=== PATIENT | male | born 1945 | race Caucasian/White ===

== ENCOUNTER 2022-05-23 17:26 | Observation (INO) | payer MEDICARE ==
[~2022-05-23] VITALS: Ht 167 cm; Wt 54.2 kg
[2022-05-23] VITALS (7 sets, daily range): BP systolic 131–170; BP diastolic 61–131
[2022-05-23 17:45] LABS: BASOPHILS # (AUTO) 0.1 10^3/uL (0.0-0.1); BASOPHILS % (AUTO) 1 % (0-10); EOSINOPHILS # (AUTO) 0.2 10^3/uL (0.0-0.3); EOSINOPHILS % (AUTO) 2 % (0-10); HEMATOCRIT 39 % (40-54); HEMOGLOBIN 13.2 g/dL (13.3-17.7); LYMPHOCYTES # (AUTO) 2.8 10^3/uL (1.0-4.0); LYMPHOCYTES % (AUTO) 31 % (12-44); MEAN CORPUSCULAR HEMOGLOBIN 32 pg (25-34); MEAN CORPUSCULAR HGB CONC 34 g/dL (32-36); MEAN CORPUSCULAR VOLUME 95 fL (80-99); MEAN PLATELET VOLUME 9.6 fL (9.0-12.2); MONOCYTES # (AUTO) 0.6 10^3/uL (0.0-1.0); MONOCYTES % (AUTO) 7 % (0-12); NEUTROPHILS # (AUTO) 5.3 10^3/uL (1.8-7.8); NEUTROPHILS % (AUTO) 59 % (42-75); PLATELET COUNT 141 10^3/uL (130-400)
[2022-05-23 17:54] LABS: ALBUMIN 3.8 GM/DL (3.2-4.5)
[2022-05-23 17:55] LABS: CHLORIDE 107 MMOL/L (98-107); POTASSIUM 3.5 MMOL/L (3.6-5.0); SODIUM 144 MMOL/L (135-145)
[2022-05-23 17:56] LABS: CALCIUM 9.2 MG/DL (8.5-10.1)
[2022-05-23 17:57] LABS: GLUCOSE 86 MG/DL (70-105); TOTAL PROTEIN 6.8 GM/DL (6.4-8.2)
[2022-05-23 17:58] LABS: CARBON DIOXIDE 24 MMOL/L (21-32)
[2022-05-23 17:59] LABS: BILIRUBIN,TOTAL 0.9 MG/DL (0.1-1.0)
[2022-05-23 18:00] LABS: ALKALINE PHOSPHATASE 70 U/L (40-136)
[2022-05-23 18:01] LABS: GFR ESTIMATED 90
[2022-05-23 18:02] LABS: BUN/CREATININE RATIO 24
[2022-05-23 18:04] LABS: ALANINE AMINOTRANSFERASE 20 U/L (0-55)
[2022-05-23 18:05] LABS: FIBRIN DEGRADATION PRODUCTS 5.73 UG/ML (0.00-0.49); PROTHROMBIN TIME PATIENT 13.6 SEC (12.2-14.7)
--- NOTE | 2022-05-23 18:14 | Diagnostic Imaging Report ---
INDICATION: Stroke, altered mental status and facial droop. TECHNIQUE: Frontal chest obtained at 06:07 p.m. COMPARISON: There is no prior study for comparison. FINDINGS: There is post-sternotomy change. The heart is borderline prominent. There is no focal infiltrate or pneumothorax or pleural fluid. There are advanced degenerative changes in both shoulders. IMPRESSION: Chronic findings as above with no acute process in the chest. Dictated by: Dictated on workstation # [id number]
--- NOTE | 2022-05-23 18:16 | Diagnostic Imaging Report ---
PROCEDURE: CT head wo r/o stroke. TECHNIQUE: Multiple contiguous axial images were obtained through the brain without the use of intravenous contrast. Auto Exposure Controls were utilized during the CT exam to meet ALARA standards for radiation dose reduction. INDICATION: Confusion, left facial drooping. No prior studies are available for comparison. FINDINGS: Ventricles and sulci are appropriate for the patient's age. No sulcal effacement is identified. There is no midline shift. No acute intra-axial or extra-axial hemorrhage is detected. Cisterns are patent. Visualized paranasal sinuses are clear. IMPRESSION: No acute intracranial process is detected. Dictated by: Dictated on workstation # [id number]
[2022-05-23 18:45] LABS: CLARITY,URINE CLEAR; COLOR,URINE YELLOW; GLUCOSE, URINE (UA) NEGATIVE (NEGATIVE); PROTEIN,URINE TRACE (NEGATIVE)
[2022-05-23 18:46] LABS: BACTERIA,URINE NEGATIVE /HPF; BILIRUBIN,URINE NEGATIVE (NEGATIVE); KETONES,URINE NEGATIVE (NEGATIVE); LEUKOCYTE ESTERASE ,URINE NEGATIVE (NEGATIVE); NITRITE,URINE NEGATIVE (NEGATIVE); WBC,URINE RARE /HPF
--- NOTE | 2022-05-23 20:38 | ED Neurological Problem ---
General Chief Complaint: Neuro-Stroke Like Symptoms Stated Complaint: STROKE SYMPTOMS Nursing Triage Note: PT ARRIVED PER EMS, PT IS PLEASANTLY CONFUSED. PT NIECE STATES APPROX 1 HR AGO PT HAS L FACIAL DROOPING, DROOLING FROM L SIDE MOUTH WHEN DRINKS. L UPPER EXT WEAKNESS. THIS HAS RESOLVED FOR EMS. UPON ARRIVAL PT HAS NO FACIAL DROOPING AND ONLY SL L UPPER EXT WEAKNESS. PT HAS L SIDE FACIAL DROOP, AND SL L UPPER EXT WEAKNESS. PT HAS HX OF DEMENTIA AND IS SOMETIMES COMBATIVE W FAMILY WHEN TAKING MED. PT DOES NOT HAVE LOCAL DR AT THIS X. PT DOES HAVE IV #22 JELCO BY EMS. Source: patient Exam Limitations: no limitations History of Present Illness Date Seen by Provider: May 23, 2022 Time Seen by Provider: 17:26 Initial Comments This is a 77-year-old male who presented to the ER via [facility] for concerns of left-sided facial drooping and left arm weakness. His niece who is his caregiver and DPOA states that he has a history of dementia, hyperlipidemia, acid reflux, and potentially several other diagnoses however he does not currently have a doctor nor does he have any medical records. States he recently moved to the area with her from [place]. His spouse in December of this year and he has been "lost" since her passing. She is unaware of most of his medical history, does note that he has thoracic scar from "some heart surgery" but she is unsure of what. When she checked his local pharmacy, they only reported medications for GERD and HLD, she is unsure if he should be taking any other medications. Recently at night he will wander around house, have increased confusion, and become very agitated. She would like him evaluated for his stroke like symptoms today and possible assistance with his dementia and behavioral disturbances. He is a current PPD smoker. Allergies and Home Medications Allergies Coded Allergies: No Known Drug Allergies (Unverified , 05/23/22) Patient Home Medication List Home Medication List Reviewed: Yes Aspirin (Aspirin EC) 81 Mg Tablet., 81 MG PO DAILY, (Reported) Entered as Reported by: JUSTIN LAROSE on 05/24/22 1252 Last Action: Reviewed Atorvastatin Calcium (Atorvastatin Calcium) 40 Mg Tablet, 40 MG PO HS, (Reported) Entered as Reported by: JUSTIN LAROSE on 05/24/22 1252 Last Action: Reviewed Losartan Potassium (Losartan Potassium) 50 Mg Tablet, 50 MG PO DAILY Prescribed by: RUDDY MARTIN on 05/29/22 1215 Omeprazole (Omeprazole) 20 Mg Capsule., 20 MG PO HS, (Reported) Entered as Reported by: JUSTIN LAROSE on 05/24/22 1252 Last Action: Reviewed Review of Systems Review of Systems Constitutional: see HPI Past Iayxibh-Joevhs-Yvkkwh Hx Patient Social History Tobacco Use?: Yes Tobacco type used: Cigarettes Smoking Status: Current Everyday Smoker Substance use?: No Alcohol Use?: No Pt feels they are or have been: No Immunizations Up To Date First/Initial COVID19 Vaccinat: 2020 COVID19 Vaccine Jig [employer] Operator: UNKNOWN Past Medical History Surgery/Hospitalization HX: L TOTAL HIP, HEART SURG UNSURE WHAT KIND Physical Exam Vital Signs Vital Signs - First Documented 05/23/22 17:26 Temp 36.8 Pulse 65 Resp 22 B/P (MAP) 170/84 (112) Pulse Ox 97 Capillary Refill : Less Than 3 Seconds Height, Weight, BMI Height: '" Weight: lbs. oz. kg; 21.00 BMI Method: General Appearance: WD/WN, no apparent distress HEENT: PERRL/EOMI, normal ENT inspection, TMs normal Neck: full range of motion, supple, normal inspection Respiratory: lungs clear, normal breath sounds, no respiratory distress, no accessory muscle use Cardiovascular: regular rate, rhythm, no edema, bradycardia Peripheral Pulses: 2+ Radial Pulses (R), 2+ Radial Pulses (L) Gastrointestinal: normal bowel sounds, non tender, soft Back: normal inspection, no vertebral tenderness Extremities: normal range of motion, normal inspection Neurologic/Psychiatric: no motor/sensory deficits, alert, normal mood/affect, oriented x 3 Crainal Nerves: normal hearing, normal speech, PERRL; No facial asymmetry, No facial droop, No facial paresthesias, No facial weakness Coordination/Gait: normal finger to nose Motor/Sensory: no motor deficit, no sensory deficit, no pronator drift Skin: normal color, warm/dry Stroke Onset of Symptoms Date of Onset of Symptoms: May 23, 2022 Time of Symptom Onset: 16:30 NIH Stroke Scale Assessment Select: Initial Level of Consciousness: 0=Alert (0), Level of Consciousness-Questions: 1=Answers one question (1), LOC Commands: 0=Performs both tasks (0), Visual Riley: 0=No visual loss (0), Facial Movement (Facial Paresis): 1=Minor paralysis (1), Motor Function-Arms Right: 0=No drift (0), Motor Function-Arms Left: 0=No drift (0), Motor Function-Legs Right: 0=No drift (0), Motor Function-Legs Left: 0=No drift (0), Limb Ataxia: 0=Absent (0), Sensory: 0=Normal:no loss (0), Best Language: 0=No aphasia (0), Dysarthria: 0=Normal (0), Extinction & Inattention: 0=No abnormality (0), Total: 2 Progress/Results/Core Measures Results/Orders Lab Results Laboratory Tests Test 05/23/22 17:30 05/23/22 18:22 Range/Units White Blood Count 9.0 4.3-11.0 10^3/uL Red Blood Count 4.09 L 4.30-5.52 10^6/uL Hemoglobin 13.2 L 13.3-17.7 g/dL Hematocrit 39 L 40-54 % Mean Corpuscular Volume 95 80-99 fL Mean Corpuscular Hemoglobin 32 25-34 pg Mean Corpuscular Hemoglobin Concent 34 32-36 g/dL Red Cell Distribution Width 13.4 10.0-14.5 % Platelet Count 141 130-400 10^3/uL Mean Platelet Volume 9.6 9.0-12.2 fL Immature Granulocyte % (Auto) 0 % Neutrophils (%) (Auto) 59 42-75 % Lymphocytes (%) (Auto) 31 12-44 % Monocytes (%) (Auto) 7 0-12 % Eosinophils (%) (Auto) 2 0-10 % Basophils (%) (Auto) 1 0-10 % Neutrophils # (Auto) 5.3 1.8-7.8 10^3/uL Lymphocytes # (Auto) 2.8 1.0-4.0 10^3/uL Monocytes # (Auto) 0.6 0.0-1.0 10^3/uL Eosinophils # (Auto) 0.2 0.0-0.3 10^3/uL Basophils # (Auto) 0.1 0.0-0.1 10^3/uL Immature Granulocyte # (Auto) 0.0 0.0-0.1 10^3/uL Percent Immature Platelet Fraction 3.3 0.0-7.6 % Prothrombin Time 13.6 12.2-14.7 SEC INR Comment 1.0 0.8-1.4 Activated Partial Thromboplast Time 32 24-35 SEC D-Dimer 5.73 H 0.00-0.49 UG/ML Sodium Level 144 135-145 MMOL/L Potassium Level 3.5 L 3.6-5.0 MMOL/L Chloride Level 107 98-107 MMOL/L Carbon Dioxide Level 24 21-32 MMOL/L Anion Gap 13 5-14 MMOL/L Blood Urea Nitrogen 19 H 7-18 MG/DL Creatinine 0.80 0.60-1.30 MG/DL Estimat Glomerular Filtration Rate 90 BUN/Creatinine Ratio 24 Glucose Level 86 70-105 MG/DL Calcium Level 9.2 8.5-10.1 MG/DL Corrected Calcium 9.4 8.5-10.1 MG/DL Total Bilirubin 0.9 0.1-1.0 MG/DL Aspartate Amino Transf (AST/SGOT) 19 5-34 U/L Alanine Aminotransferase (ALT/SGPT) 20 0-55 U/L Alkaline Phosphatase 70 40-136 U/L Troponin I < 0.028 <0.028 NG/ML Total Protein 6.8 6.4-8.2 GM/DL Albumin 3.8 3.2-4.5 GM/DL Urine Color YELLOW Urine Clarity CLEAR Urine pH 6.0 5-9 Urine Specific [place] 1.025 H 1.016-1.022 Urine Protein TRACE H NEGATIVE Urine Glucose (UA) NEGATIVE NEGATIVE Urine Ketones NEGATIVE NEGATIVE Urine Nitrite NEGATIVE NEGATIVE Urine Bilirubin NEGATIVE NEGATIVE Urine Urobilinogen 1.0 < = 1.0 MG/DL Urine Leukocyte Esterase NEGATIVE NEGATIVE Urine RBC (Auto) NEGATIVE NEGATIVE Urine RBC NONE /HPF Urine WBC RARE /HPF Urine Squamous Epithelial Cells NONE /HPF Urine Renal Epithelial Cells NONE /HPF Urine Crystals NONE /LPF Urine Bacteria NEGATIVE /HPF Urine Casts NONE /LPF Urine Mucus SMALL H /LPF Urine Culture Indicated NO My Orders Orders - ANAHI GODINEZ DOOR TECHNICIAN Cbc With Automated Diff (05/23/22 17:30) Protime With Inr (05/23/22 17:30) Partial Thromboplastin Time (05/23/22 17:30) Comprehensive Metabolic Panel (05/23/22 17:30) Fibrin Degradation Products (05/23/22 17:30) Troponin I [place] (05/23/22 17:30) Ua Culture If Indicated (05/23/22 17:30) Chest 1 View, Ap/Pa Only (05/23/22 17:30) Ekg Tracing (05/23/22 17:30) Accucheck Stat ONCE (05/23/22 17:30) Ed Iv/Invasive Line Start (05/23/22 17:30) Vital Signs Stroke Patient Q15M (05/23/22 17:30) Ct Head Wo-R/O Stroke (05/23/22 17:30) O2 (05/23/22 17:30) Intake & Output 06,14,22 (05/23/22 17:30) Monitor-Rhythm Ecg Trace Only (05/23/22 17:30) Dysphagia Screening Tool Q10MX1 (05/23/22 17:30) Post Thrombolytic Adminstratio (05/23/22 17:30) Ekg Tracing (05/23/22 18:38) Ed Admission (Communication) (05/23/22 20:29) Vital Signs/I&O 05/23/22 17:26 Temp 36.8 Pulse 65 Resp 22 B/P (MAP) 170/84 (112) Pulse Ox 97 Blood Pressure Mean: 112 FSBG Bedside Testing Finger Stick Blood Glucose: 82 Blood Glucose Action Taken: DR NOTIFIED Progress Progress Note : Progress Note Patient examined and in no acute distress. GCS 15. Drooling, arm and facial drooping resolved prior to arrival. Initiated stroke workup, CT negative, no elevation in white count, H&H stable. He is noted to have Bradycardia 30-40's HR, asymptomatic. Discussed with Dr. Figueroa with cardiology, recommended admission for Bradycardia and further evaluation of TIA symptoms. Discussed with Dr. Qureshi, accepted admission to medical telemetry unit. Initial ECG Impression Date: May 23, 2022 Initial ECG Impression Time: 18:42 Initial ECG Rate: 46 Initial ECG Rhythm: S.Len Initial ECG Impression: Sinus Bradycardia Initial ECG Comparisson: No Previous ECG Available Diagnostic Imaging Comments [facility] [place], [place] NAME: LOGA WILLAMS [facility] REC#: [id number] PT STATUS: REG ER : 1945 PHYSICIAN: ANAHI GODINEZ DOOR TECHNICIAN ADMIT DATE: 05/23/22/ER Signed Date of Exam:05/23/22 CHEST 1 VIEW, AP/PA ONLY INDICATION: Stroke, altered mental status and facial droop. TECHNIQUE: Frontal chest obtained at 06:07 p.m. COMPARISON: There is no prior study for comparison. FINDINGS: There is post-sternotomy change. The heart is borderline prominent. There is no focal infiltrate or pneumothorax or pleural fluid. There are advanced degenerative changes in both shoulders. IMPRESSION: Chronic findings as above with no acute process in the chest. Dictated by: Dictated on workstation # [id number] Dict: 05/23/221809 Trans: 05/23/221936 [facility] [id number] Interpreted by: RUTHY WHEELER MD Electronically signed by: RUTHY WHEELER MD 05/23/221936 Reviewed: Reviewed by Dc Diagonstic Imaging: CT Plain Films/CT/US/NM/MRI: head Comments [facility] [place], [place] NAME: OLGA WILLAMS [facility] REC#: [id number] PT STATUS: REG ER : 1945 PHYSICIAN: ANAHI GODINEZ DOOR TECHNICIAN ADMIT DATE: 05/23/22/ER Signed Date of Exam:05/23/22 CT HEAD WO-R/O STROKE PROCEDURE: CT head wo r/o stroke. TECHNIQUE: Multiple contiguous axial images were obtained through the brain without the use of intravenous contrast. Auto Exposure Controls were utilized during the CT exam to meet ALARA standards for radiation dose reduction. INDICATION: Confusion, left facial drooping. No prior studies are available for comparison. FINDINGS: Ventricles and sulci are appropriate for the patient's age. No sulcal effacement is identified. There is no midline shift. No acute intra-axial or extra-axial hemorrhage is detected. Cisterns are patent. Visualized paranasal sinuses are clear. IMPRESSION: No acute intracranial process is detected. Dictated by: Dictated on workstation # [id number] Dict: 05/23/221812 Trans: 05/23/221849 [id number] Interpreted by: JAZMINE KERR MD Electronically signed by: JAZMINE KERR MD 05/23/221849 Departure Communication (Admissions) Time/Spoke to Admitting Phy: 19:51 Dr. Qureshi Time/Spoke to Consulting Phy: 19:04 Dr. Figueroa Impression Primary Impression: TIA (transient ischemic attack) Additional Impression: Bradyarrhythmia Disposition: ADMITTED INPATIENT Condition: Stable Admissions Decision to Admit Reason: Admit from ER (General) Decision to Admit/Date: May 23, 2022 Time/Decision to Admit Time: 19:51 Departure-Patient Inst. Scripts Losartan Potassium (Losartan Potassium) 50 Mg Tablet 50 MG PO DAILY, #30 TAB Prov: RUDDY MARTIN MD 05/29/22 ANAHI GODINEZ APRN May 23, 2022 20:38
[2022-05-23] MEDS ORDERED: ZIPRASIDONE 20 MG INJ (GEODON) VIAL IM PRN (21:15)
[2022-05-23] MEDS ORDERED: CALCIUM CARBONATE 500 MG (TUMS) TAB.CHEW PO PRN (21:15)
[2022-05-23] MEDS ORDERED: ONDANSETRON 4 MG/2 ML (SDV) Z0FRAN IV PRN (21:15)
[2022-05-23] MEDS ORDERED: ONDANSETRON 4 MG (ZOFRAN) ORAL DISSOLVE TAB PO PRN (21:15)
[2022-05-23] MEDS ORDERED: ACETAMINOPHEN 325 MG TABLET PO PRN (21:15)
[2022-05-23] MEDS ORDERED: MELATONIN 3 MG TABLET PO PRN (21:15)
[2022-05-23] MEDS ORDERED: morphine INJ 4 MG/ML 1 ML (VIAL/SYRINGE) IV PRN (21:15)
[2022-05-23] MEDS ORDERED: ANTACID SUSP 30 ML UDC (MYLANTA) PO PRN (21:15)
[2022-05-23] MEDS ORDERED: BISACODYL 10 MG SUPP (DULCOLAX) PR PRN (21:15)
[2022-05-23] MEDS ORDERED: MILK OF MAGNESIA 400 MG/5 ML 30 ML UDC PO PRN (21:15)
[2022-05-23] MEDS ORDERED: diphenhydrAMINE 50 MG/ML INJ (BENADRYL) IVP PRN (21:15)
[2022-05-23] MEDS ORDERED: cloNIDine 0.1 MG (CATAPRES) TAB PO PRN (21:15)
[2022-05-23] MEDS ORDERED: LACTULOSE SYRUP 10GM/15ML (ENULOSE) 30ML UDC PO PRN (21:15)
[2022-05-23] MEDS ORDERED: WATER (STERILE) FOR INJ 10 ML BTL INJ SCH (21:15)
[2022-05-23] MEDS ORDERED: polyethylene glycoL POWDER 17 GM (MIRALAX) PACK PO PRN (21:15)
[2022-05-23 21:23] LABS: TRIGLYCERIDES 187 MG/DL (<150); VLDL CHOLESTEROL 37 MG/DL (5-40)
[2022-05-23 21:28] LABS: CHOLESTEROL 187 MG/DL (< 200)
[2022-05-23 21:29] LABS: HDL CHOLESTEROL 38 MG/DL (40-60)
[2022-05-23] MEDS ORDERED: RT-ALBUTEROL SULF 2.5 MG/3 ML PRE-MIX VIAL INH PRN (21:30)
[2022-05-23] MEDS ORDERED: ENOXAPARIN 80 MG/0.8 ML (LOVENOX) SYR SC SCH (22:00)
[2022-05-24] VITALS (10 sets, daily range): BP systolic 109–146; BP diastolic 52–95
[2022-05-24 05:13] LABS: HEMOGLOBIN 12.8 g/dL (13.3-17.7); MEAN CORPUSCULAR HEMOGLOBIN 33 pg (25-34)
[2022-05-24 05:15] LABS: BASOPHILS # (AUTO) 0.1 10^3/uL (0.0-0.1); BASOPHILS % (AUTO) 1 % (0-10); EOSINOPHILS # (AUTO) 0.3 10^3/uL (0.0-0.3); EOSINOPHILS % (AUTO) 3 % (0-10); HEMATOCRIT 38 % (40-54); LYMPHOCYTES % (AUTO) 35 % (12-44); MEAN CORPUSCULAR HGB CONC 34 g/dL (32-36); MEAN CORPUSCULAR VOLUME 96 fL (80-99); MEAN PLATELET VOLUME 9.8 fL (9.0-12.2); MONOCYTES # (AUTO) 0.6 10^3/uL (0.0-1.0); MONOCYTES % (AUTO) 7 % (0-12); NEUTROPHILS # (AUTO) 4.7 10^3/uL (1.8-7.8); NEUTROPHILS % (AUTO) 54 % (42-75); PLATELET COUNT 128 10^3/uL (130-400); WHITE BLOOD COUNT 8.7 10^3/uL (4.3-11.0)
[2022-05-24 05:30] LABS: ALBUMIN 3.3 GM/DL (3.2-4.5); POTASSIUM 3.3 MMOL/L (3.6-5.0)
[2022-05-24 05:32] LABS: CALCIUM 8.8 MG/DL (8.5-10.1)
[2022-05-24 05:33] LABS: TOTAL PROTEIN 5.9 GM/DL (6.4-8.2)
[2022-05-24 05:36] LABS: CREATININE SERUM 0.72 MG/DL (0.60-1.30)
[2022-05-24] MEDS: POTASSIUM CL 10MEQ/50ML IVPB 50 ML IV SCH (06:39)
[2022-05-24] MEDS: NICOTINE 21 MG (NICODERM) PATCH TD SCH (09:00)
[2022-05-24] MEDS: SENNOSIDES 8.6 MG (SENOKOT) TAB PO SCH ×2 (09:00→20:10)
[2022-05-24] MEDS: CLOPIDOGREL 75 MG (PLAVIX) TABLET PO SCH (09:00)
[2022-05-24] MEDS: DOCUSATE SODIUM 100 MG (COLACE) CAP PO SCH ×2 (09:00→20:10)
[2022-05-24] MEDS: ASPIRIN 325 MG (5 GR) TABLET PO SCH (09:00)
--- NOTE | 2022-05-24 09:06 | Consultation-Cardiology ---
HPI-Cardiology Cardiology Consultation Date of Consultation 05/24/22 Date of Admission Time Seen by Provider: 09:01 Indication: TIA HPI 77-year-old gentleman with dementia. Unable to provide any history, history was obtained by reviewing his record. Patient had sudden onset of facial droop, brought to the emergency room by ambulance, by the time he arrived to the emergency room he was back to his baseline. On my evaluation he was feeling well. Denied any chest pain, denied any shortness of breath. No palpitation. He has a scar of thoracic surgery in the past, does not know what type of surgery he had. He has moved to our area recently from [place]. No medical records available for him. Noted to have an abnormal EKG. Home Medications & Allergies Allergies: Coded Allergies: No Known Drug Allergies (Unverified , 05/23/22) Home Medication List Reviewed: Yes ZJE-Sghabi-Hvbvrx Hx Patient Social History Marital Status: Employed/Student: retired Smoking Status: Current Everyday Smoker Have you traveled recently?: No Alcohol Use?: No Past Medical History Not available Family Medical History Family Medical Hx Noncontributory Review of Systems-General Review of Systems Constitutional: no symptoms reported, see HPI, weakness EENTM: see HPI, no symptoms reported Respiratory: see HPI; No cough, No dyspnea on exertion, No hemoptysis, No orthopnea, No phlegm, No short of breath, No stridor, No wheezing, No other Cardiovascular: see HPI; No chest pain, No edema, No Hx of Intervention, No palpitations, No syncope, No vascular heart diseas, No other Gastrointestinal: no symptoms reported, see HPI Genitourinary: no symptoms reported, see HPI Musculoskeletal: no symptoms reported, see HPI Skin: no symptoms reported, see HPI Psychiatric/Neurological: No Symptoms Reported, See HPI Reviewed Test Results Reviewed Test Results Lab Laboratory Tests Test 05/23/22 17:30 05/23/22 18:22 05/24/22 05:00 Range/Units White Blood Count 9.0 8.7 4.3-11.0 10^3/uL Red Blood Count 4.09 L 3.92 L 4.30-5.52 10^6/uL Hemoglobin 13.2 L 12.8 L 13.3-17.7 g/dL Hematocrit 39 L 38 L 40-54 % Mean Corpuscular Volume 95 96 80-99 fL Mean Corpuscular Hemoglobin 32 33 25-34 pg Mean Corpuscular Hemoglobin Concent 34 34 32-36 g/dL Red Cell Distribution Width 13.4 13.4 10.0-14.5 % Platelet Count 141 128 L 130-400 10^3/uL Mean Platelet Volume 9.6 9.8 9.0-12.2 fL Immature Granulocyte % (Auto) 0 0 % Neutrophils (%) (Auto) 59 54 42-75 % Lymphocytes (%) (Auto) 31 35 12-44 % Monocytes (%) (Auto) 7 7 0-12 % Eosinophils (%) (Auto) 2 3 0-10 % Basophils (%) (Auto) 1 1 0-10 % Neutrophils # (Auto) 5.3 4.7 1.8-7.8 10^3/uL Lymphocytes # (Auto) 2.8 3.0 1.0-4.0 10^3/uL Monocytes # (Auto) 0.6 0.6 0.0-1.0 10^3/uL Eosinophils # (Auto) 0.2 0.3 0.0-0.3 10^3/uL Basophils # (Auto) 0.1 0.1 0.0-0.1 10^3/uL Immature Granulocyte # (Auto) 0.0 0.0 0.0-0.1 10^3/uL Percent Immature Platelet Fraction 3.3 3.2 0.0-7.6 % Prothrombin Time 13.6 12.2-14.7 SEC INR Comment 1.0 0.8-1.4 Activated Partial Thromboplast Time 32 24-35 SEC D-Dimer 5.73 H 0.00-0.49 UG/ML Sodium Level 144 140 135-145 MMOL/L Potassium Level 3.5 L 3.3 L 3.6-5.0 MMOL/L Chloride Level 107 106 98-107 MMOL/L Carbon Dioxide Level 24 24 21-32 MMOL/L Anion Gap 13 10 5-14 MMOL/L Blood Urea Nitrogen 19 H 17 7-18 MG/DL Creatinine 0.80 0.72 0.60-1.30 MG/DL Estimat Glomerular Filtration Rate 90 93 BUN/Creatinine Ratio 24 24 Glucose Level 86 81 70-105 MG/DL Calcium Level 9.2 8.8 8.5-10.1 MG/DL Corrected Calcium 9.4 9.4 8.5-10.1 MG/DL Total Bilirubin 0.9 1.0 0.1-1.0 MG/DL Aspartate Amino Transf (AST/SGOT) 19 28 5-34 U/L Alanine Aminotransferase (ALT/SGPT) 20 29 0-55 U/L Alkaline Phosphatase 70 73 40-136 U/L Troponin I < 0.028 <0.028 NG/ML Total Protein 6.8 5.9 L 6.4-8.2 GM/DL Albumin 3.8 3.3 3.2-4.5 GM/DL Triglycerides Level 187 H <150 MG/DL Cholesterol Level 187 < 200 MG/DL LDL Cholesterol Direct 129 1-129 MG/DL VLDL Cholesterol 37 5-40 MG/DL HDL Cholesterol 38 L 40-60 MG/DL Urine Color YELLOW Urine Clarity CLEAR Urine pH 6.0 5-9 Urine Specific [place] 1.025 H 1.016-1.022 Urine Protein TRACE H NEGATIVE Urine Glucose (UA) NEGATIVE NEGATIVE Urine Ketones NEGATIVE NEGATIVE Urine Nitrite NEGATIVE NEGATIVE Urine Bilirubin NEGATIVE NEGATIVE Urine Urobilinogen 1.0 < = 1.0 MG/DL Urine Leukocyte Esterase NEGATIVE NEGATIVE Urine RBC (Auto) NEGATIVE NEGATIVE Urine RBC NONE /HPF Urine WBC RARE /HPF Urine Squamous Epithelial Cells NONE /HPF Urine Renal Epithelial Cells NONE /HPF Urine Crystals NONE /LPF Urine Bacteria NEGATIVE /HPF Urine Casts NONE /LPF Urine Mucus SMALL H /LPF Urine Culture Indicated NO Physical Exam Physical Exam Vital Signs Vital Signs - First Documented 05/23/22 05/23/22 05/23/22 05/24/22 17:26 21:00 21:15 00:48 Temp 36.8 Pulse 65 Resp 22 B/P (MAP) 170/84 (112) Pulse Ox 97 O2 Delivery Room Air O2 Flow Rate 2.00 FiO2 21 Capillary Refill : Less Than 3 Seconds Height, Weight, BMI Height: '" Weight: lbs. oz. kg; 23.52 BMI Method: General Appearance: No Apparent Distress, WD/WN Eyes: Bilateral Eye Normal Inspection, Bilateral Eye PERRL, Bilateral Eye EOMI HEENT: PERRL/EOMI, TMs Normal, Normal ENT Inspection, Pharynx Normal, Moist Mucous Membranes Neck: Full Range of Motion, Normal Inspection, Non Tender, Supple, Carotid Bruit Respiratory: Chest Non Tender, Normal Breath Sounds, No Accessory Muscle Use, No Respiratory Distress Cardiovascular: No Edema, No Gallop, No JVD, Normal Peripheral Pulses, Bradycardia, Systolic Murmur Gastrointestinal: Normal Bowel Sounds, No Organomegaly, No Pulsatile Mass, Non Tender, Soft Back: Normal Inspection, No CVA Tenderness, No Vertebral Tenderness Extremity: Normal Capillary Refill, Normal Inspection, Normal Range of Motion, Non Tender, No Calf Tenderness, No Pedal Edema Neurologic/Psychiatric: Alert, Oriented x3, No Motor/Sensory Deficits, Normal Mood/Affect Skin: Normal Color, Warm/Dry Lymphatic: No Adenopathy A/P-Cardiology Admission Diagnosis TIA Sinus node dysfunction Congestive heart failure, chronic compensated left ventricular systolic dysfunction, ischemic cardiomyopathy Coronary artery disease Assessment/Plan TIA, full recovery. Had a transient episode of facial droop and weakness on the left side. Resolved. Work-up has been negative. Starting aspirin and Plavix. Continue to monitor Sinus node dysfunction, sinus bradycardia, not on any beta-blockers or calcium channel blockers. Blood pressure is stable, exercise ability is limited Patient is asymptomatic and has advanced dementia. I recommend conservative management. Continue to monitor If he becomes symptomatic we will consider placement of a pacemaker/ICD due to his heart failure Congestive heart failure, chronic compensated left ventricular systolic dysfunction with ejection fraction around 30% Probably ischemic cardiomyopathy, compensated at this point. Patient cannot tolerate beta-rosamaria due to sinus node dysfunction and bradycardia We will use low-dose ARB and evaluate tolerance and response Due to his advanced dementia I do not feel that he is a candidate for ICD implant. I will discuss with his niece who is his legal guardian Hypertension, monitor blood pressure Hyperlipidemia, monitor lipids Advanced dementia. Confusion. Clinical Quality Measures DVT/VTE Risk/Contraindication: Contraindications-Mechi: Other *list below* Other: lower leg pain suspected clot OSCAR CHRISTIANSON MD May 24, 2022 09:06
--- NOTE | 2022-05-24 09:21 | Diagnostic Imaging Report ---
PROCEDURE: MR imaging of the brain without contrast. TECHNIQUE: Multiplanar, multisequence MR imaging of the brain was performed without contrast. INDICATION: Left-sided facial droop and confusion. No prior MRI studies are available for comparison. Ventricles and sulci are prominent consistent with the patient's age. There is moderate periventricular and subcortical white matter changes consistent with chronic microvascular ischemia. No diffusion restriction is identified to suggest acute ischemia. No acute intra-axial or extra-axial hemorrhage is detected. Overall quality is somewhat limited due to patient motion. IMPRESSION: Somewhat compromised study due to patient motion. However, no acute feature is detected. Dictated by: Dictated on workstation # [id number]
--- NOTE | 2022-05-24 10:46 | Speech Therapy Progress Note ---
Therapy Progress Note Speech pathology received the consultation for services and reviewed the chart. The patient "passed" the RN Dysphagia Screen and reports tolerance of a regular diet consistency with thin liquids. Additionally, the patient denied challenges or concerns with his speech, language, or cognition (including dysarthria). At this time, the patient does not qualify for skilled speech pathology services. Please re-consult speech pathology, if needed. SONI CARRINGTON May 24, 2022 10:46
--- NOTE | 2022-05-24 11:33 | Diagnostic Imaging Report ---
PROCEDURE: US carotid duplex, bilateral. TECHNIQUE: Multiple real-time grayscale images were obtained over the carotid arteries in various projections, bilaterally. Additional spectral analysis and color Doppler duplex images were also obtained. NASCET criteria were utilized. INDICATION: TIAs. FINDINGS: There is dense irregular calcified plaquing within the carotid bulbs and extending into the internal and external carotid arteries bilaterally. There is antegrade flow throughout the carotid and vertebral arteries. There are elevated velocities within the internal carotid arteries bilaterally with elevated carotid ratios. External carotid arteries show mild increased velocity. Vertebral arteries are antegrade and symmetrical. 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 Stenosis is estimated approximately 70%. Parameters based on the consensus panel Iglesias-Scale and Doppler ultrasound criteria published July 2003, Radiology, Volume 229. DOPPLER (peak systolic velocity M/S Right Left CCA .74 .63 ICA Proximal 1.66 .47 ICA Mid 1.45 1.40 ICA Distal .78 .65 RATIO 2.25 2.23 ECA 1.87 1.20 VERT .73 .67 Dictated by: Dictated on workstation # [id number]
--- NOTE | 2022-05-24 11:42 | Diagnostic Imaging Report ---
INDICATION: Leg pain. COMPARISON: None. TECHNIQUE: Duplex, grayscale, and color-flow imaging of the bilateral lower extremity venous system was performed. FINDINGS: The common femoral vein, superficial femoral vein, profunda femoris, and popliteal veins are normal. These vessels show normal compressibility, color flow, and Doppler augmentation. The deep calf veins, although not very well seen, demonstrate no distinct intraluminal thrombus. IMPRESSION: Negative venous Doppler of the bilateral lower extremities. Dictated by: Dictated on workstation # [id number]
--- NOTE | 2022-05-24 11:50 | Physical Therapy Evaluation ---
PT Evaluation-General Medical Diagnosis Admission Date May 23, 2022 at 20:31 Medical Diagnosis: TIA Onset Date: May 23, 2022 Therapy Diagnosis Therapy Diagnosis: impaired mobility Precautions Precautions/Isolations: Fall Prevention, Standard Precautions Referral Physician: Rimma Qureshi DO Reason for Referral: Evaluation/Treatment Medical History Additional Medical History Past Medical History Surgery/Hospitalization HX: L TOTAL HIP, HEART SURG UNSURE WHAT KIND Reviewed History: Yes Social History Current Living Status: Alone Entry Into Home: Stairs With Railing PT Steps Into Home: 2 Prior Prior Level of Function SCALE: Activities may be completed with or without assistive devices. 2-Gsorpcvwkn-drqkzrh completes the activity by him/herself with no assistance from a helper. 5-Set-up or Clean-up Assistance-helper sets up or cleans up; patient completes activity. [place] assists only prior to or following the activity. 4-Supervision or Touching Assistance-helper provides verbal cues and/or touching/steadying and/or contact guard assistance as patient completes activity. Assistance may be provided throughout the activity or intermittently. 3-Partial/Moderate Assistance-helper does LESS THAN HALF the effort. [place] lifts, holds or supports trunk or limbs, but provides less than half the effort. 2-Substantial/Maximal Assistance-helper does MORE THAN HALF the effort. [place] lifts or holds trunk or limbs and provides more than half the effort. 6-Yekyrnsse-mmtbbw does ALL the effort. Patient does none of the effort to complete the activity. Or, the assistance of 2 or more helpers is required for the patient to complete the activity. If activity was not attempted, code reason: 7-Patient Refused. 9-Not Applicable-not attempted and the patient did not perform the activity before the current illness, exacerbation or injury. 10-Not Attempted due to Environmental Limitations-(lack of equipment, weather restraints, etc.). 88-Not Attempted due to Medical Conditions or Safety Concerns. Bed Mobility: 6 Transfers (B,C,W/C): 6 Gait: 6 Stairs: 6 Indoor Mobility (Ambulation): Independent Stairs: Independent Prior Devices Use: Walker PT Evaluation-Current Subjective Patient in bed pre tx, agrees to PT, has no complaints of pain but states he has to put on his shoes to ambulate because the bottom of his feet hurt because [place]. Pt/Family Goals to be independent at home Objective Patient Orientation: Person, Confused ROM/Strength ROM Lower Extremities WNL Strength Lower Extremities LLE (hip flexion 3+/5, knee flexion 4/5, knee extension 4/5, dorsiflexion 4/5), RLE (hip flexion 3+/5, knee flexion 4/5, knee extension 4/5, dorsiflexion 4/5) Neuromuscular (Tone, Coordination, Reflexes) patient had intact peripheral vision and tracking Sensory Vision: Functional Hearing: Functional Sensation Right Lower Extremit: Intact Sensation Left Lower Extremity: Intact Transfers Roll Left to Right (QC): 6 Sit to Lying (QC): 6 Lying to Sitting/Side of Bed(Q: 6 Sit to Stand (QC): 4 Chair/Owx-yb-Zbdsr Xfer(QC): 4 Gait Does the Patient Walk?: Yes Mode of Locomotion: Walk Anticipated Mode of Locomotion: Walk Walk 10 feet (QC): 4 Walk 50 ft with 2 Turns(QC): 4 Walk 150 ft (QC): 4 Distance: 150' Gait Assistive Device: FWW Comments/Gait Description slow ambulation, slightly unsteady but no LOB, right foot turns in, patient states it is from an injury from falling off a [place] Balance Sitting Static: Normal Sitting Dynamic: Normal Standing Static: Fair Standing Dynamic: Fair Assessment/Needs Patient sitting EOB to finish lunch post tx, family in room. Patient has nurse call, phone, tray, all needs met. Patient has unsteady ambulation and is at risk for falls if he ambulates on his own. Rehab Potential: Fair PT Senior Living Goals Senior Living Goals PT Senior Living Goals Time Frame: May 31, 2022 Roll Left & Right (QC): 6 Sit to Lying (QC): 6 Lying-Sitting on Side/Bed(QC): 6 Sit to Stand (QC): 6 Chair/Wrk-qj-Mqwsi Xfer(QC): 6 Walk 10 feet (QC): 6 Walk 50ft with 2 Turns (QC): 6 Walk 150 ft (QC): 6 PT Plan Problem List Problem List: Activity Tolerance, Functional Strength, Safety, Balance, Gait, Transfer, ROM Treatment/Plan Treatment Plan: Continue Plan of Care Treatment Plan: Education, Functional Activity Rashard, Functional Strength, Gait, Safety, Therapeutic Exercise, Transfers Treatment Duration: May 31, 2022 Frequency: 6 times per week Estimated Hrs Per Day: .25 hour per day Patient and/or Family Agrees t: Yes Safety Risks/Education Patient Education: Gait Training, Transfer Techniques, Correct Positioning, Safety Issues Teaching Recipient: Patient Teaching Methods: Demonstration, Discussion Response to Teaching: Reinforcement Needed Discharge Recommendations Plan Patient will perform bed mobility and transfer training, balance and endurance training, functional strengthening, stair training, gait training, and education, to improve functional mobility and independence at home. Therapy Discharge Recommendati: Scheduled Assistance, Assisted Living, Homemaker Support, Post Acute PT Time/GCodes Time In: 1115 Time Out: 1126 Total Billed Treatment Time: 11 Total Billed Treatment 1 visit ARLEY 11' KELSEY PHIPPS PT May 24, 2022 11:50
--- NOTE | 2022-05-24 11:52 | Occupational Therapy Eval ---
OT Evaluation-General/PLF Medical Diagnosis Admission Date May 23, 2022 at 20:31 Medical Diagnosis: Bradiarythmia, TIA Onset Date: May 23, 2022 Therapy Diagnosis Therapy Diagnosis: Impaired ADLs, balance and strength Precautions Precautions/Isolations: Fall Prevention, Standard Precautions Referral Physician: Kiera Referral Reason: Evaluation/Treatment Medical History Pertinent Medical History: Dementia, Heart Failure, HTN Additional Medical History TIA Current History Pt arrived by ambulance to the ER for L facial drooping, and L UE weakness, but was back to baseline upon arrival to the ER. Pt lives with niece and several of her children. Niece reports he is unsteady at baseline and has had many falls. She also states that with his advanced dementia, it is becoming more difficult to care for him and meet his needs. Pt refuses to receive assistance from family, including bathing, laundry, toileting, dressing. Niece reports he probably needs assist. Niece is looking into placing pt into a custodial due to increased assistance in ADLs, safety concerns, and pt's combative behavior to family members. Reviewed History: Yes Social History Home: Single Level Current Living Status: Other Family (Niece and 3 kids of her own) Entry Into Home: Ramp, Stairs With Railing Steps Into Home: 5 (5-3) ADL-Prior Level of Function SCALE: Activities may be completed with or without assistive devices. 3-Mhksdwzwie-wlfwcoh completes the activity by him/herself with no assistance from a helper. 5-Set-up or Clean-up Assistance-helper sets up or cleans up; patient completes activity. [place] assists only prior to or following the activity. 4-Supervision or Touching Assistance-helper provides verbal cues and/or touching/steadying and/or contact guard assistance as patient completes activity. Assistance may be provided throughout the activity or intermittently. 3-Partial/Moderate Assistance-helper does LESS THAN HALF the effort. [place] lifts, holds or supports trunk or limbs, but provides less than half the effort. 2-Substantial/Maximal Assistance-helper does MORE THAN HALF the effort. [place] lifts or holds trunk or limbs and provides more than half the effort. 6-Zkaqbadmi-wdwmol does ALL the effort. Patient does none of the effort to complete the activity. Or, the assistance of 2 or more helpers is required for the patient to complete the activity. If activity was not attempted, code reason: 7-Patient Refused. 9-Not Applicable-not attempted and the patient did not perform the activity before the current illness, exacerbation or injury. 10-Not Attempted due to Environmental Limitations-(lack of equipment, weather restraints, etc.). 88-Not Attempted due to Medical Conditions or Safety Concerns. Self Care: Needed Some Help Functional Cognition: Needed Some Help DME/Equipment: Bath Chair (refuses to use chair), Tub/Shower OT Current Status Subjective Pt was sitting EOB eating lunch with niece present in room. He agrees to an OT therapy eval. Appearance Pt left seated EOB, with niece present, with all needs within reach. Mental Status/Objective Patient Orientation: Person, Confused Attachments: Telemetry Current Glasses/Contacts: No Dentures/Partials: Yes Hand Dominance: Right Upper Extremity ROM Right: ~140 degrees Left: ~150 degrees Upper Extremity Coordination Slightly impaired Upper Extremity Sensation Intact Upper Extremity Strength Cylinder Sander Operator strength: WFL Shoulder flexion: 3-/5 ADL-Treatment Eating (QC): 6 On/Off Footwear (QC): 5 (per PT) Pt wanted to get dressed, so that he could leave. Niece told therapist to defer dressing at this time, due to confusion and wanting to leave. Sit<>stand transfer: CGA for safety. Pt shows impulsivity and max safety concerns. Pt's dynamic sitting balance was tested, showing mod-max balance deficits. Education OT Patient Education: Instructions to caregiver, Progress toward Goal/Update tx plan, Purpose of tx/functional activities, Rehab process, Safety issues, Transfer techniques Teaching Recipient: Patient Teaching Methods: Discussion Response to Teaching: Reinforcement Needed OT Halfway Goals Halfway Goals Time Frame: Jun 02, 2022 Eating (QC): 6 Oral Hygiene (QC): 5 Toileting Hygiene (QC): 4 Shower/Bathe Self (QC): 4 Upper Body Dressing (QC): 5 Lower Body Dressing (QC): 4 On/Off Footwear (QC): 6 Additional Goals: 1-Demonstrate ADL Tasks, 2-Verbalize Understanding, 3- ImproveStrength/Rashard 1=Demonstrate adherence to instructed precautions during ADL tasks. 2=Patient will verbalize/demonstrate understanding of assistive devices/modifications for ADL. 3=Patient will improve strength/tolerance for activity to enable patient to perform ADL's. OT Education/Plan Problem List/Assessment Assessment: Decreased Activ Tolerance, Decreased Safety Aware, Decreased UE Strength, Impaired Cognition, Impaired Coordination, Impaired Funct Balance, Impaired I ADL's, Impaired Self-Care Skills, Restricted Funct UE ROM Discharge Recommendations Plan/Recommendations: Continue POC Therapy Discharge Recommendati: Assisted Living, Meals on Wheels, Bath Aide, Homemaker Support Treatment Plan/Plan of Care Treatment,Training & Education: Yes Patient would benefit from OT for education, treatment and training to promote independence in ADL's, mobility, safety and/or upper extremity function for ADL's. Plan of Care: ADL Retraining, Caregiver Training, Functional Mobility, UE Funct Exercise/Act, UE Neuromus Re-Ed/Coord Treatment Duration: Jun 02, 2022 Frequency: 3 times per week (3-5 x/week) Estimated Hrs Per Day: .25 hour per day Agreement: Yes Rehab Potential: Poor Time/GCodes Start Time: 11:30 Stop Time: 11:40 Total Time Billed (hr/min): 10 Billed Treatment Time 1 visit Brittany Smith OT May 24, 2022 11:52
--- NOTE | 2022-05-24 12:27 | History & Physical ---
MAURICIO PORTILLO 05/24/22 1227: History of Present Illness History of Present Illness Reason for visit/HPI Henry Valdes is a 77yo M with a PMH of dementia, hyperlipidemia, GERD, and CAD who presented to the ED 05/23 after experiencing left sided facial drooping and weakness of the upper extremity on the left. His family member noted the symptoms, but they had resolved by the time the patient arrived at the ED. This morning 05/24 pt did not complain of any residual deficits or any pain. He denied any chest pain, N/V, changes in hearing/vision, or shortness of breath. Pt was alert and responsive to my questions but had some mild confusion which family member revealed was his baseline. Date of Admission May 23, 2022 at 20:31 Time Seen by a Provider: 08:30 I consulted on this patient on 05/24/22 12:21 Attending Physician Admitting Physician Admitting Physician: Rimma Qureshi DO Attending Physician: Rimma Qureshi DO Consult Allergies and Home Medications Allergies Coded Allergies: No Known Drug Allergies (Unverified , 05/23/22) Patient Home Medication List Home Medication List Reviewed: Yes Aspirin (Aspirin EC) 81 Mg Tablet., 81 MG PO DAILY, (Reported) Entered as Reported by: JUSTIN LAROSE on 05/24/22 125 Last Action: Reviewed Atorvastatin Calcium (Atorvastatin Calcium) 40 Mg Tablet, 40 MG PO HS, (Reported) Entered as Reported by: JUSTIN LAROSE on 05/24/22 125 Last Action: Reviewed Omeprazole (Omeprazole) 20 Mg Capsule., 20 MG PO HS, (Reported) Entered as Reported by: JUSTIN LAROSE on 05/24/22 125 Last Action: Reviewed Past Bsifphn-Skpmtk-[place] Hx Patient Social History Marrital Status: Employed/Student: retired Tobacco Use?: Yes Tobacco type used: Cigarettes Smoking Status: Current Everyday Smoker Substance use?: No Alcohol Use?: No Pt feels they are or have been: Unable to obtain Immunizations Up To Date First/Initial COVID19 Vaccinat: 2020 Current Status Advance Directives: Unable to obtain Communicates: Verbally Primary Language: Maldivian Preferred Spoken Language: Maldivian Is interpretation needed?: No Implanted or Applied Medical D: None Past Medical History Surgeries: CABG High Cholesterol Dementia Review of Systems Constitutional: no symptoms reported; No chills, No diaphoresis, No fever EENTM: No hearing loss, No hoarseness Respiratory: No cough, No short of breath, No wheezing Cardiovascular: No chest pain, No edema; Hx of Intervention Gastrointestinal: No abdominal pain, No jaundice, No nausea, No vomiting Genitourinary: No dysuria, No pain Musculoskeletal: No joint swelling, No muscle twitching Skin: no symptoms reported, see HPI; No change in color, No change in hair/nails Psychiatric/Neurological: No Symptoms Reported; Denies Headache, Denies Tremors Physical Exam Vital Signs Vital Signs - First Documented 05/23/22 05/23/22 05/23/22 05/24/22 17:26 21:00 21:15 00:48 Temp 36.8 Pulse 65 Resp 22 B/P (MAP) 170/84 (112) Pulse Ox 97 O2 Delivery Room Air O2 Flow Rate 2.00 FiO2 21 Capillary Refill : Less Than 3 Seconds Height, Weight, BMI Height: '" Weight: lbs. oz. kg; 23.52 BMI Method: General Appearance: No Apparent Distress, WD/WN Eyes: Bilateral Eye PERRL, Bilateral Eye EOMI HEENT: PERRL/EOMI, Moist Mucous Membranes; No Scleral Icterus (L), No Scleral Icterus (R) Neck: Full Range of Motion, Normal Inspection, Non Tender, Supple; No JVD Respiratory: Chest Non Tender, Lungs Clear, Normal Breath Sounds, No Accessory Muscle Use, No Respiratory Distress Cardiovascular: No Edema, No Gallop, No JVD, No Murmur, Normal Peripheral Pulses, Bradycardia Gastrointestinal: Normal Bowel Sounds, No Organomegaly, No Pulsatile Mass, Non Tender, Soft Rectal: Deferred Extremity: Normal Capillary Refill, Normal Inspection, Non Tender, No Pedal Edema Neurologic/Psychiatric: Alert, No Motor/Sensory Deficits (left sided droop and UE weakness were not found on Physical exam at this time), Normal Mood/Affect; No Motor Weakness Skin: Normal Color, Warm/Dry; No Jaundice Assessment/Plan Assessment and Plan TIA Pts symptoms have resolved, negative CT and MRI for ischemia. Started on aspirin, clopidogrel, and atorvastatin. TTE done today- awaiting report for evidence of thrombus in atria. Carotid US- bilateral stenosis 70%. Elevated D Dimer Negative LE ultrasound for DVT Bradycardia EKG revealed sinus bradycardia with potential Right bundle branch block. Cardiology consulted. Dr Figueroa recommends conservative management as pt is asymptomatic. Will consider pacemaker if pt becomes symptomatic. Compensated Systolic Heart failure Ejection fraction 30%. Cardiology consulted. Beta rosamaria contraindicated due to bradycardia. Will start an ARB. No current symptoms Hypokalemia KCl IV, continue to monitor Admission Diagnosis Reason for Inpatient Admission: Stroke like symptoms- TIA Clinical Quality Measures DVT/VTE Risk/Contraindication: Contraindications-Mechi: Other *list below* Other: lower leg pain suspected clot EVI KELLER MD 05/24/221815: History of Present Illness History of Present Illness Date Seen by a Provider: May 24, 2022 Time Seen by a Provider: 10:30 Allergies and Home Medications Allergies Coded Allergies: No Known Drug Allergies (Unverified , 05/23/22) Patient Home Medication List Home Medication List Reviewed: Yes Aspirin (Aspirin EC) 81 Mg Tablet., 81 MG PO DAILY, (Reported) Entered as Reported by: JUSTIN LAROSE on 05/24/22 125 Last Action: Reviewed Atorvastatin Calcium (Atorvastatin Calcium) 40 Mg Tablet, 40 MG PO HS, (Reported) Entered as Reported by: JUSTIN LAROSE on 05/24/22 125 Last Action: Reviewed Omeprazole (Omeprazole) 20 Mg Capsule., 20 MG PO HS, (Reported) Entered as Reported by: JUSTIN LAROSE on 05/24/221251 Last Action: Reviewed Past Gxtttmz-Psielc-Oeycnl Hx Family Medical History No Pertinent Family Hx Assessment/Plan Assessment and Plan Presented with stroke like symptoms and admitted with TIA. All deficits resolved, no residual. CT and MRI without evidence of stroke. Continue ASA, add Plavix, Lipitor. Cardiology consulted for bradycardia, discussed with family, plan for conservative medical management at this time. PT/OT for debility. SW consulted for assistance with discharge planning. Problems: (1) TIA (transient ischemic attack) Status: Acute (2) Bradycardia Status: Acute (3) Chronic HFrEF (heart failure with reduced ejection fraction) Status: Chronic (4) Hypokalemia Status: Acute (5) HLD (hyperlipidemia) Status: Chronic (6) GERD (gastroesophageal reflux disease) Status: Chronic (7) Dementia Status: Chronic (8) Debility Status: Chronic Admission Diagnosis TIA Admission Status: Observation Supervisory-Addendum Brief Verification & Attestation Participated in pt care: history, MDM, physical Personally performed: exam, history, MDM, supervision of care Care discussed with: Medical Student Procedures: n/a Results interpretation: Verified all documentation A medical student performed and documented this service in my presence. I reviewed and verified all information documented by the medical student and made modifications to such information, when appropriate. I personally performed the physical exam and medical decision making. MAURICIO PORTILLO May 24, 2022 12:27 EVI KELLER MD May 24, 2022 18:16
[2022-05-24] MEDS ORDERED: ASPI-1238 PO (12:52)
[2022-05-24] MEDS ORDERED: ATOR40TA70 PO (12:52)
[2022-05-24] MEDS ORDERED: OMEP20CA18 PO (12:52)
[2022-05-24] MEDS ORDERED: LOSARTAN 25 MG (COZAAR) TAB PO SCH (14:30)
[2022-05-24] MEDS ORDERED: FUROSEMIDE 40 MG/4 ML INJ (LASIX) IVP NR (14:30)
[2022-05-24] MEDS: diphenhydrAMINE 25 MG TAB (BENADRYL) PO PRN (20:10)
[2022-05-24] MEDS: ENOXAPARIN 40 MG/0.4 ML (LOVENOX) SYR SC SCH (20:10)
[2022-05-24] MEDS: LORazepam 0.5 MG (ATIVAN) TABLET PO PRN (20:10)
[2022-05-25 00:58] VITALS: BP 142/95
[2022-05-25 03:52] VITALS: BP 122/68
[2022-05-25] MEDS ORDERED: POTASSIUM CL 10MEQ/50ML IVPB 50 ML IV ONE (05:12)
[2022-05-25] MEDS: POTASSIUM CL 10MEQ/50ML IVPB 50 ML IV SCH ×4 (05:16→08:47)
[2022-05-25 05:22] LABS: BASOPHILS # (AUTO) 0.1 10^3/uL (0.0-0.1); BASOPHILS % (AUTO) 1 % (0-10); EOSINOPHILS # (AUTO) 0.3 10^3/uL (0.0-0.3); EOSINOPHILS % (AUTO) 3 % (0-10); HEMATOCRIT 39 % (40-54); HEMOGLOBIN 13.1 g/dL (13.3-17.7); LYMPHOCYTES % (AUTO) 30 % (12-44); MEAN CORPUSCULAR HEMOGLOBIN 32 pg (25-34); MEAN CORPUSCULAR HGB CONC 34 g/dL (32-36); MEAN CORPUSCULAR VOLUME 94 fL (80-99); MEAN PLATELET VOLUME 9.8 fL (9.0-12.2); MONOCYTES # (AUTO) 0.7 10^3/uL (0.0-1.0); MONOCYTES % (AUTO) 7 % (0-12); NEUTROPHILS % (AUTO) 59 % (42-75); PLATELET COUNT 131 10^3/uL (130-400); WHITE BLOOD COUNT 10.2 10^3/uL (4.3-11.0)
[2022-05-25 05:35] LABS: ALBUMIN 3.4 GM/DL (3.2-4.5); POTASSIUM 3.8 MMOL/L (3.6-5.0)
[2022-05-25 05:36] LABS: CALCIUM 8.9 MG/DL (8.5-10.1)
[2022-05-25 05:38] LABS: TOTAL PROTEIN 6.2 GM/DL (6.4-8.2)
[2022-05-25 05:39] LABS: BILIRUBIN,TOTAL 0.4 MG/DL (0.1-1.0)
[2022-05-25 05:41] LABS: CREATININE SERUM 0.87 MG/DL (0.60-1.30)
[2022-05-25] MEDS ORDERED: KCL 20 MEQ TAB (K-DUR) PO ONE (07:00)
[2022-05-25 08:00] VITALS: BP 118/93
--- NOTE | 2022-05-25 08:25 | Cardiology Progress Note ---
Subjective Date Seen by Provider: May 25, 2022 Time Seen by Provider: 08:23 Subjective/Events-last exam Patient was seen at bedside, walking with physical therapy. Feeling better. No new complaint. Review of Systems General: No Chills, No Night Sweats, No Fatigue, No Malaise, No Appetite, No Other HEENT: No Head Aches, No Visual Changes, No Eye Pain, No Ear Pain, No Dysphasia, No Sinus Congestion, No Post Nasal Drip, No Sore Throat, No Other Pulmonary: No Dyspnea, No Cough, No Pleuritic Chest Pain, No Other Cardiovascular: No: Chest Pain, Palpitations, Orthopnea, Paroxysmal Noc. Dyspnea, Edema, Lt Headedness, Other Objective-Cardiology Exam Last Set of Vital Signs Vital Signs 05/23/22 05/24/22 05/25/22 21:15 23:58 08:00 Temp 36.2 Pulse 48 Resp 20 B/P (MAP) 118/93 (101) Pulse Ox 93 O2 Delivery Nasal Cannula O2 Flow Rate 0.00 FiO2 21 I&O Intake and Output 05/25/22 00:00 Intake Total 1700 ml Output Total 850 ml Balance 850 ml Intake Oral 1500 ml IV Total 200 ml Output Urine Total 850 ml # Voids 4 # Bowel Movements 1 General: Alert, Oriented X3, Cooperative HEENT: Atraumatic, PERRLA Neck: Supple, No JVD, No Thyromegaly Lungs: Clear to Auscultation, Normal Air Movement Heart: Normal S1, Normal S2, Other (Systolic murmur, S3.) Abdomen: Normal Bowel Sounds, Soft, No Tenderness, No Hepatosplenomegaly, No Masses Extremities: No Clubbing, No Cyanosis, No Edema, Normal Pulses, No Tenderness/Swelling Skin: No Rashes, No Breakdown, No Significant Lesion Neuro: Normal Gait, Normal Speech, Strength at 5/5 X4 Ext, Normal Tone, Sensation Intact Psych/Mental Status: Mental Status NL, Mood NL Results Lab Laboratory Tests 05/25/22 05:15 A/P-Cardiology Admission Diagnosis TIA Sinus node dysfunction Congestive heart failure, chronic compensated left ventricular systolic dysfunction, ischemic cardiomyopathy Coronary artery disease Assessment/Plan TIA, full recovery. Had a transient episode of facial droop and weakness on the left side. Resolved. Work-up has been negative. Continue on aspirin and Plavix Sinus node dysfunction, sinus bradycardia, not on any beta-blockers or calcium channel blockers. Blood pressure is stable, exercise ability is limited Patient is asymptomatic and has advanced dementia. Had a long discussion with the patient and his niece, requested conservative management. Heart rate is better, patient is working with physical therapy and feeling better. Congestive heart failure, chronic compensated left ventricular systolic dysfunction with ejection fraction around 30% Probably ischemic cardiomyopathy, compensated at this point. Patient cannot tolerate beta-rosamaria due to sinus node dysfunction and bradycardia I will increase losartan to 50 mg daily Discussed the management plan with the patient and his niece, requested conservative management, patient has advanced dementia Not a candidate for ICD Hypertension, monitor blood pressure Hyperlipidemia, monitor lipids Advanced dementia. Confusion. Patient requested to be DNR OSCAR CHRISTIANSON MD May 25, 2022 08:25
[2022-05-25] MEDS: DOCUSATE SODIUM 100 MG (COLACE) CAP PO SCH ×2 (08:43→21:43)
[2022-05-25] MEDS: ASPIRIN 325 MG (5 GR) TABLET PO SCH (08:43)
[2022-05-25] MEDS: CLOPIDOGREL 75 MG (PLAVIX) TABLET PO SCH (08:43)
[2022-05-25] MEDS: SENNOSIDES 8.6 MG (SENOKOT) TAB PO SCH ×2 (08:44→21:43)
[2022-05-25] MEDS: FUROSEMIDE 40 MG/4 ML INJ (LASIX) IVP SCH (08:44)
[2022-05-25] MEDS: NICOTINE 21 MG (NICODERM) PATCH TD SCH (08:44)
[2022-05-25] MEDS: LOSARTAN 50 MG (COZAAR) TAB PO SCH (08:44)
[2022-05-25] MEDS ORDERED: NS IV 500 ML 500 ML ONE (09:28)
--- NOTE | 2022-05-25 10:00 | Physical Therapy Daily Note ---
PT Daily Note-Current Subjective Patient agrees to PT. No c/o. Mental Status Patient Orientation: Person, Time, Situation Transfers SCALE: Activities may be completed with or without assistive devices. 9-Dkgdhvuxwj-remfich completes the activity by him/herself with no assistance fr om a helper. 5-Set-up or Clean-up Assistance-helper sets up or cleans up; patient completes activity. [place] assists only prior to or following the activity. 4-Supervision or Touching Assistance-helper provides verbal cues and/or touching/steadying and/or contact guard assistance as patient completes activity. Assistance may be provided throughout the activity or intermittently. 3-Partial/Moderate Assistance-helper does LESS THAN HALF the effort. [place] lifts, holds or supports trunk or limbs, but provides less than half the effort. 2-Substantial/Maximal Assistance-helper does MORE THAN HALF the effort. [place] lifts or holds trunk or limbs and provides more than half the effort. 2-Htejetzpx-cxjaqv does ALL the effort. Patient does none of the effort to complete the activity. Or, the assistance of 2 or more helpers is required for the patient to complete the activity. If activity was not attempted, code reason: 7-Patient Refused. 9-Not Applicable-not attempted and the patient did not perform the activity before the current illness, exacerbation or injury. 10-Not Attempted due to Environmental Limitations-(lack of equipment, weather restraints, etc.). 88-Not Attempted due to Medical Conditions or Safety Concerns. Lying to Sitting/Side of Bed(Q: 6 Sit to Stand (QC): 4 Chair/Olm-qb-Epomr Xfer(QC): 4 Toilet Transfer (QC): 4 Patient toilets self Gait Training Distance: 300' Walk 10 feet (QC): 4 Walk 50 ft with 2 Turns(QC): 4 Walk 150 ft (QC): 4 Gait Assistive Device: FWW SBA/no deviation on this date Exercises Seated Therapy Exercises: Ankle pumps, Long arc quads, Hip flexion Seated Reps: 15 Assessment Patient tolerated treatment well and is up in recliner with chair alarm activated. Patient improved with gross motor skills on this date. PT Shelter Goals Help Desk Support Goals PT Help Desk Support Goals Time Frame: May 31, 2022 Roll Left & Right (QC): 6 Sit to Lying (QC): 6 Lying-Sitting on Side/Bed(QC): 6 Sit to Stand (QC): 6 Chair/Fnr-rh-Tibds Xfer(QC): 6 Walk 10 feet (QC): 6 Walk 50ft with 2 Turns (QC): 6 Walk 150 ft (QC): 6 PT Plan Treatment/Plan Treatment Plan: Continue Plan of Care Treatment Plan: Education, Functional Activity Rashard, Functional Strength, Gait, Safety, Therapeutic Exercise, Transfers Treatment Duration: May 31, 2022 Frequency: 6 times per week Estimated Hrs Per Day: .25 hour per day Patient and/or Family Agrees t: Yes Time/GCodes Time In: 742 Time Out: 805 Total Billed Treatment Time: 23 Total Billed Treatment 1 visit FA x 2 23 min HEIKE OCASIO PT May 25, 2022 09:59
[2022-05-25 11:12] VITALS: BP 126/98
--- NOTE | 2022-05-25 11:44 | Occupational Ther Daily Note ---
OT Current Status-Daily Note Subjective Pt alert, agrees to therapy. Pt is confused and requires multiple cues to participate in skilled therapy. Mental Status/Objective Patient Orientation: Person, Confused Attachments: IV ADL-Treatment Therapy Code Descriptions/Definitions Functional [place] Measure: 0=Not Assessed/NA 4=Minimal Assistance 1=Total Assistance 5=Supervision or Setup 2=Maximal Assistance 6=Modified [place] 3=Moderate Assistance 7=Complete IndependenceSCALE: Activities may be completed with or without assistive devices. 0-Lmslywklqq-zlvgprg completes the activity by him/herself with no assistance from a helper. 5-Set-up or Clean-up Assistance-helper sets up or cleans up; patient completes activity. [place] assists only prior to or following the activity. 4-Supervision or Touching Assistance-helper provides verbal cues and/or touching/steadying and/or contact guard assistance as patient completes activity. Assistance may be provided throughout the activity or intermittently. 3-Partial/Moderate Assistance-helper does LESS THAN HALF the effort. [place] lifts, holds or supports trunk or limbs, but provides less than half the effort. 2-Substantial/Maximal Assistance-helper does MORE THAN HALF the effort. [place] lifts or holds trunk or limbs and provides more than half the effort. 3-Ssgtcarxs-ssousv does ALL the effort. Patient does none of the effort to complete the activity. Or, the assistance of 2 or more helpers is required for the patient to complete the activity. If activity was not attempted, code reason: 7-Patient Refused. 9-Not Applicable-not attempted and the patient did not perform the activity before the current illness, exacerbation or injury. 10-Not Attempted due to Environmental Limitations-(lack of equipment, weather restraints, etc.). 88-Not Attempted due to Medical Conditions or Safety Concerns. Other Treatment Pt completed B UE strengthening with light resistance theraband, 2 sets 10 reps of 4 exercises. Skilled instructions given for correct technique and multiple visual/verbal cues to focus on task through completion. After therapy, pt lying in bed with call light/phone in reach. All needs met in room. OT Ornamental Bronze Worker Goals Ornamental Bronze Worker Goals Time Frame: Jun 02, 2022 Eating (QC): 6 Oral Hygiene (QC): 5 Toileting Hygiene (QC): 4 Shower/Bathe Self (QC): 4 Upper Body Dressing (QC): 5 Lower Body Dressing (QC): 4 On/Off Footwear (QC): 6 Additional Goals: 1-Demonstrate ADL Tasks, 2-Verbalize Understanding, 3- ImproveStrength/Rashard 1=Demonstrate adherence to instructed precautions during ADL tasks. 2=Patient will verbalize/demonstrate understanding of assistive devices/modifications for ADL. 3=Patient will improve strength/tolerance for activity to enable patient to perform ADL's. OT Education/Plan Problem List/Assessment Assessment: Decreased Activ Tolerance, Decreased UE Strength, Impaired Cognition Discharge Recommendations Plan/Recommendations: Continue POC Treatment Plan/Plan of Care Patient would benefit from OT for education, treatment and training to promote independence in ADL's, mobility, safety and/or upper extremity function for ADL's. Plan of Care: ADL Retraining, Caregiver Training, Functional Mobility, UE Funct Exercise/Act, UE Neuromus Re-Ed/Coord Treatment Duration: Jun 02, 2022 Frequency: 3 times per week (3-5 x/week) Estimated Hrs Per Day: .25 hour per day Agreement: Yes Rehab Potential: Poor Time/GCodes Start Time: 10:24 Stop Time: 10:35 Total Time Billed (hr/min): 11 Billed Treatment Time 1 visit-EX 1 (11 min) GABRIELLA CANTRELL May 25, 2022 11:44
[2022-05-25] MEDS: NS IV 500 ML 500 ML IV SCH (11:45)
--- NOTE | 2022-05-25 12:24 | Progress Note ---
MAURICIO PORTILLO 05/25/22 1224: Subjective Subjective/Events-last exam Henry Valdes is a 77yo M who presented after experiencing left sided facial droop and left upper extremity weakness. These deficits had resolved before arrival to the ED. Pt is not reporting any pain or issues this morning. He was able to walk with therapy. He denies any weakness or changes in his hearing or vision. Pt is mildly confused, probably at baseline level of dementia. Review of Systems HEENT: No Head Aches, No Visual Changes Pulmonary: No Dyspnea, No Cough Cardiovascular: No: Chest Pain, Edema Gastrointestinal: No: Nausea, Vomiting, Abdominal Pain Genitourinary: No Dysuria, No Retention Neurological: Incoordination, Confusion Focused Exam Respiratory: Chest Non Tender, Lungs Clear, Normal Breath Sounds, No Accessory Muscle Use, No Respiratory Distress Cardiovascular: No Edema, No Gallop, No JVD, No Murmur, Normal Peripheral Pulses, Bradycardia Capillary Refill: Less Than 3 Seconds Peripheral Pulses: 2+ Radial Pulses (R), 2+ Radial Pulses (L) Skin: normal color, warm/dry; No jaundice Objective Exam Last Set of Vital Signs Vital Signs Date Time Temp Pulse Resp B/P (MAP) Pulse Ox O2 Delivery O2 Flow Rate FiO2 05/25/22 11:12 36.6 73 18 126/98 (107) 98 Room Air 05/24/22 23:58 0.00 05/23/22 21:15 21 Capillary Refill : Less Than 3 Seconds I&O Intake and Output 05/25/22 00:00 Intake Total 1700 ml Output Total 850 ml Balance 850 ml Intake Oral 1500 ml IV Total 200 ml Output Urine Total 850 ml # Voids 4 # Bowel Movements 1 General: Alert, Cooperative, No Acute Distress HEENT: Atraumatic, EOMI Neck: Supple, No JVD Lungs: Clear to Auscultation, Normal Air Movement Heart: Normal S1, Normal S2 Abdomen: Normal Bowel Sounds, Soft, No Tenderness Extremities: No Clubbing, No Cyanosis, No Edema Neuro: Normal Speech, Normal Tone Psych/Mental Status: Mental Status NL (mild confusion at baseline), Mood NL Results Lab Laboratory Tests 05/25/22 05:15: White Blood Count 10.2, Red Blood Count 4.13L, Hemoglobin 13.1L, Hematocrit 39L, Mean Corpuscular Volume 94, Mean Corpuscular Hemoglobin 32, Mean Corpuscular Hemoglobin Concent 34, Red Cell Distribution Width 13.3, Platelet Count 131, Mean Platelet Volume 9.8, Immature Granulocyte % (Auto) 0, Neutrophils (%) (Auto) 59, Lymphocytes (%) (Auto) 30, Monocytes (%) (Auto) 7, Eosinophils (%) (Auto) 3, Basophils (%) (Auto) 1, Neutrophils # (Auto) 6.0, Lymphocytes # (Auto) 3.0, Monocytes # (Auto) 0.7, Eosinophils # (Auto) 0.3, Basophils # (Auto) 0.1, Immature Granulocyte # (Auto) 0.0, Sodium Level 138, Potassium Level 3.8, Chlor alba Level 102, Carbon Dioxide Level 23, Anion Gap 13, Blood Urea Nitrogen 23H, Creatinine 0.87, Estimat Glomerular Filtration Rate 88, BUN/Creatinine Ratio 26, Glucose Level 98, Calcium Level 8.9, Corrected Calcium 9.4, Total Bilirubin 0.4, Aspartate Amino Transf (AST/SGOT) 27, Alanine Aminotransferase (ALT/SGPT) 42, Alkaline Phosphatase 75, Total Protein 6.2L, Albumin 3.4 Assessment/Plan Assessment/Plan Assess & Plan/Chief Complaint TIA negative ct and mri. Continue aspirin, clopidogrel, and atorvastatin. monitor for signs of neuro defecit return Bradycardia Cardiology consulted, conservative management chosen, may consider pacemaker if pt becomes symptomatic Carotid Stenosis 70% bl stenosis, continue aspirin, clopidogrel, and atorvastatin Compensated systolic HFrEF B rosamaria contraindicated due to bradycardia, started on Losartan and Furosemide Hypokalemia resolved with IV replacement. continue to monitor Hyperlipidemia Continue statin therapy Pt is awaiting approval from nursing facilities before discharge Final Diagnosis TIA and Bradyarrhythmia Clinical Quality Measures Admission Status Admission Dx TIA Pts symptoms have resolved, negative CT and MRI for ischemia. Started on aspirin, clopidogrel, and atorvastatin. TTE done today- awaiting report for evidence of thrombus in atria. Carotid US- bilateral stenosis 70%. Elevated D Dimer Negative LE ultrasound for DVT Bradycardia EKG revealed sinus bradycardia with potential Right bundle branch block. Cardiology consulted. Dr Figueroa recommends conservative management as pt is asymptomatic. Will consider pacemaker if pt becomes symptomatic. Compensated Systolic Heart failure Ejection fraction 30%. Cardiology consulted. Beta rosamaria contraindicated due to bradycardia. Will start an ARB. No current symptoms Hypokalemia KCl IV, continue to monitor DVT/VTE Risk/Contraindication: Contraindications-Mechi: Other *list below* Other: lower leg pain suspected clot EVI KELLER MD 05/25/22 1549: Subjective Date Seen by a Provider: May 25, 2022 Time Seen by a Provider: 09:55 Assessment/Plan Assessment/Plan Assess & Plan/Chief Complaint Admitted with TIA. Carotid artery ultrasound with 70% stenosis. Continued on ASA, started on Plavix. Will follow up with Cardiology. Stable for discharge. SW assisting with discharge planning. Diagnosis/Problems Diagnosis/Problems (1) TIA (transient ischemic attack) Status: Acute (2) HLD (hyperlipidemia) Status: Chronic (3) Bradycardia Status: Acute (4) Chronic HFrEF (heart failure with reduced ejection fraction) Status: Chronic (5) Debility Status: Chronic Supervisory-Addendum Brief Verification & Attestation Participated in pt care: history, MDM, physical Personally performed: exam, history, MDM, supervision of care Care discussed with: Medical Student Procedures: n/a Results interpretation: Verified all documentation A medical student performed and documented this service in my presence. I reviewed and verified all information documented by the medical student and made modifications to such information, when appropriate. I personally performed the physical exam and medical decision making. MAURICIO PORTILLO May 25, 2022 12:24 EVI KELLER MD May 25, 2022 15:49
[2022-05-25] MEDS: LORazepam 0.5 MG (ATIVAN) TABLET PO PRN (16:59)
[2022-05-25 20:00] VITALS: BP 102/65
[2022-05-25] MEDS: ENOXAPARIN 40 MG/0.4 ML (LOVENOX) SYR SC SCH (21:44)
[2022-05-26] VITALS (8 sets, daily range): BP systolic 105–150; BP diastolic 58–91
[2022-05-26 04:17] LABS: BASOPHILS # (AUTO) 0.1 10^3/uL (0.0-0.1); BASOPHILS % (AUTO) 1 % (0-10); EOSINOPHILS # (AUTO) 0.4 10^3/uL (0.0-0.3); EOSINOPHILS % (AUTO) 3 % (0-10); HEMATOCRIT 38 % (40-54); HEMOGLOBIN 12.7 g/dL (13.3-17.7); LYMPHOCYTES # (AUTO) 2.3 10^3/uL (1.0-4.0); LYMPHOCYTES % (AUTO) 23 % (12-44); MEAN CORPUSCULAR HEMOGLOBIN 32 pg (25-34); MEAN CORPUSCULAR HGB CONC 33 g/dL (32-36); MEAN CORPUSCULAR VOLUME 96 fL (80-99); MONOCYTES # (AUTO) 0.7 10^3/uL (0.0-1.0); MONOCYTES % (AUTO) 7 % (0-12); NEUTROPHILS # (AUTO) 6.7 10^3/uL (1.8-7.8); NEUTROPHILS % (AUTO) 66 % (42-75); PLATELET COUNT 130 10^3/uL (130-400); WHITE BLOOD COUNT 10.2 10^3/uL (4.3-11.0)
[2022-05-26] MEDS: NS IV 500 ML 500 ML IV SCH (04:25)
[2022-05-26 04:36] LABS: ALBUMIN 3.3 GM/DL (3.2-4.5); BILIRUBIN,TOTAL 0.3 MG/DL (0.1-1.0); CALCIUM 8.7 MG/DL (8.5-10.1); CREATININE SERUM 0.98 MG/DL (0.60-1.30); TOTAL PROTEIN 6.2 GM/DL (6.4-8.2)
[2022-05-26] MEDS: ASPIRIN 325 MG (5 GR) TABLET PO SCH (08:13)
[2022-05-26] MEDS: LOSARTAN 50 MG (COZAAR) TAB PO SCH (08:13)
[2022-05-26] MEDS: CLOPIDOGREL 75 MG (PLAVIX) TABLET PO SCH (08:13)
[2022-05-26] MEDS: NICOTINE 21 MG (NICODERM) PATCH TD SCH (08:13)
[2022-05-26] MEDS: FUROSEMIDE 40 MG/4 ML INJ (LASIX) IVP SCH (09:27)
[2022-05-26] MEDS: SENNOSIDES 8.6 MG (SENOKOT) TAB PO SCH ×2 (09:27→20:46)
[2022-05-26] MEDS: DOCUSATE SODIUM 100 MG (COLACE) CAP PO SCH ×2 (09:27→20:45)
--- NOTE | 2022-05-26 09:37 | Physical Therapy Daily Note ---
PT Daily Note-Current Subjective Patient is very agitated on this date. Pain Section J - Health Conditions 1. Rarely or not at all 2. Occasionally 3. Frequently 4. Almost constantly 8. Unable to answer Pain Effect on Sleep: 1 Pain Interference with Therapy: 1 Pain Interference w/Day-to-Day: 1 Mental Status Patient Orientation: Person, Time Transfers SCALE: Activities may be completed with or without assistive devices. 4-Ybsbbvyqkv-ymrojzx completes the activity by him/herself with no assistance from a helper. 5-Set-up or Clean-up Assistance-helper sets up or cleans up; patient completes activity. [place] assists only prior to or following the activity. 4-Supervision or Touching Assistance-helper provides verbal cues and/or touching/steadying and/or contact guard assistance as patient completes activity. Assistance may be provided throughout the activity or intermittently. 3-Partial/Moderate Assistance-helper does LESS THAN HALF the effort. [place] lifts, holds or supports trunk or limbs, but provides less than half the effort. 2-Substantial/Maximal Assistance-helper does MORE THAN HALF the effort. [place] lifts or holds trunk or limbs and provides more than half the effort. 3-Eqmogltas-cvcyto does ALL the effort. Patient does none of the effort to complete the activity. Or, the assistance of 2 or more helpers is required for the patient to complete the activity. If activity was not attempted, code reason: 7-Patient Refused. 9-Not Applicable-not attempted and the patient did not perform the activity before the current illness, exacerbation or injury. 10-Not Attempted due to Environmental Limitations-(lack of equipment, weather restraints, etc.). 88-Not Attempted due to Medical Conditions or Safety Concerns. Sit to Stand (QC): 4 Toilet Transfer (QC): 4 patient toileted independently Gait Training Distance: 25' x 2 Walk 10 feet (QC): 4 Gait Assistive Device: FWW slow and steady with FWW use (patient not safe without FWW. Very unsteady with furniture walking performed ambulating to restroom) Assessment Patient declined to ambulate in hallway due to agitation. Patient sitting EOB with bed alarm activated for patient safety. PT to increase activity as tolerated by patient. PT Boat Rigger Goals Boat Rigger Goals PT Boat Rigger Goals Time Frame: May 31, 2022 Roll Left & Right (QC): 6 Sit to Lying (QC): 6 Lying-Sitting on Side/Bed(QC): 6 Sit to Stand (QC): 6 Chair/Frn-hh-Kvrcq Xfer(QC): 6 Walk 10 feet (QC): 6 Walk 50ft with 2 Turns (QC): 6 Walk 150 ft (QC): 6 PT Plan Treatment/Plan Treatment Plan: Continue Plan of Care Treatment Plan: Education, Functional Activity Rashard, Functional Strength, Gait, Safety, Therapeutic Exercise, Transfers Treatment Duration: May 31, 2022 Frequency: 6 times per week Estimated Hrs Per Day: .25 hour per day Patient and/or Family Agrees t: Yes Time/GCodes Time In: 841 Time Out: 851 Total Billed Treatment Time: 10 Total Billed Treatment 1 visit FA 10 min HEIKE OCASIO PT May 26, 2022 09:37
--- NOTE | 2022-05-26 10:59 | Occupational Ther Daily Note ---
OT Current Status-Daily Note Subjective Pt in bed, agreeable to OT tx. ADL-Treatment Therapy Code Descriptions/Definitions Functional [place] Measure: 0=Not Assessed/NA 4=Minimal Assistance 1=Total Assistance 5=Supervision or Setup 2=Maximal Assistance 6=Modified [place] 3=Moderate Assistance 7=Complete IndependenceSCALE: Activities may be completed with or without assistive devices. 2-Uvnfkmvbaq-ueprtml completes the activity by him/herself with no assistance from a helper. 5-Set-up or Clean-up Assistance-helper sets up or cleans up; patient completes activity. [place] assists only prior to or following the activity. 4-Supervision or Touching Assistance-helper provides verbal cues and/or touching/steadying and/or contact guard assistance as patient completes activity. Assistance may be provided throughout the activity or intermittently. 3-Partial/Moderate Assistance-helper does LESS THAN HALF the effort. [place] lifts, holds or supports trunk or limbs, but provides less than half the effort. 2-Substantial/Maximal Assistance-helper does MORE THAN HALF the effort. [place] lifts or holds trunk or limbs and provides more than half the effort. 1-Fjwsmybuh-owgvjy does ALL the effort. Patient does none of the effort to complete the activity. Or, the assistance of 2 or more helpers is required for the patient to complete the activity. If activity was not attempted, code reason: 7-Patient Refused. 9-Not Applicable-not attempted and the patient did not perform the activity befo re the current illness, exacerbation or injury. 10-Not Attempted due to Environmental Limitations-(lack of equipment, weather re straints, etc.). 88-Not Attempted due to Medical Conditions or Safety Concerns. Other Treatment OT tx focused on increasing BUE strength and activity tolerance. Pt unable to recall where light resistance band was from yesterdays tx, OT unable to locate in pt's room. Pt transferred supine to sit EOB independently. Pt completed x20 reps AROM BUE for shoulder flexion, front punch and elbow flexion/extension, with rest breaks between exercises. Pt transferred supine independently. Post tx, pt in bed, call light in reach and all needs met, bed alarm activated. Education OT Patient Education: Correct positioning, Energy conservation, Modified ADL techniques, Progress toward Goal/Update tx plan, Purpose of tx/functional activities, Rehab process Teaching Recipient: Patient Teaching Methods: Discussion Response to Teaching: Verbalize Understanding OT Substance Abuse Nurse Goals Substance Abuse Nurse Goals Time Frame: Jun 02, 2022 Eating (QC): 6 Oral Hygiene (QC): 5 Toileting Hygiene (QC): 4 Shower/Bathe Self (QC): 4 Upper Body Dressing (QC): 5 Lower Body Dressing (QC): 4 On/Off Footwear (QC): 6 Additional Goals: 1-Demonstrate ADL Tasks, 2-Verbalize Understanding, 3- ImproveStrength/Rashard 1=Demonstrate adherence to instructed precautions during ADL tasks. 2=Patient will verbalize/demonstrate understanding of assistive devices/modifi cations for ADL. 3=Patient will improve strength/tolerance for activity to enable patient to perform ADL's. OT Education/Plan Problem List/Assessment Assessment: Decreased Activ Tolerance, Decreased Safety Aware, Decreased UE Strength, Impaired Funct Balance, Impaired I ADL's, Impaired Self-Care Skills Discharge Recommendations Plan/Recommendations: Continue POC Treatment Plan/Plan of Care Patient would benefit from OT for education, treatment and training to promote independence in ADL's, mobility, safety and/or upper extremity function for ADL's. Plan of Care: ADL Retraining, Caregiver Training, Functional Mobility, UE Funct Exercise/Act, UE Neuromus Re-Ed/Coord Treatment Duration: Jun 02, 2022 Frequency: 3 times per week (3-5 x/week) Estimated Hrs Per Day: .25 hour per day Agreement: Yes Rehab Potential: Poor Time/GCodes Start Time: 10:37 Stop Time: 10:47 Total Time Billed (hr/min): 10 Billed Treatment Time 1, EX PRISCILLA TURNER OT May 26, 2022 10:59
--- NOTE | 2022-05-26 11:05 | Progress Note - Cardiology ---
Cardiology SOAP Progress Note Objective: I&O/Vital Signs 05/26/22 05/26/22 05/26/22 05/26/22 04:00 08:01 11:06 13:30 Temp 36.6 36.7 Pulse 53 80 80 Resp 16 20 20 B/P (MAP) 122/68 (86) 141/91 (108) 105/62 (76) Pulse Ox 92 96 92 O2 Delivery Room Air Room Air Room Air Room Air 05/26/22 05/26/22 13:46 14:00 Temp 36.8 Pulse 66 Resp 20 B/P (MAP) 112/60 (77) Pulse Ox 96 96 O2 Delivery Room Air Room Air O2 Flow Rate 2.00 05/26/22 00:00 Intake Total 925 ml Output Total 1900 ml Balance -975 ml Constitutional: well-developed, well-nourished Respiratory: No accessory muscle use, No respiratory distress; chest expansion is symmetric, chest is bilaterally symmetric Cardiovascular: regular rate-rhythm; No JVD; S1 and S2, systolic murmur Gastrointestional: No tender; soft, audible bowel sounds Extremities: no lower extremity edema bilateral Neurologic/Psychiatric: grossly intact (moves all extremities) Skin: normal color, warm/dry; No jaundice, No rash on exposed areas, No ulcerations on exposed areas Results/Procedures: Labs Laboratory Tests 05/26/22 04:08: White Blood Count 10.2, Red Blood Count 3.98L, Hemoglobin 12.7L, Hematocrit 38L, Mean Corpuscular Volume 96, Mean Corpuscular Hemoglobin 32, Mean Corpuscular Hemoglobin Concent 33, Red Cell Distribution Width 13.5, Platelet Count 130, Mean Platelet Volume 10.0, Immature Granulocyte % (Auto) 1, Neutrophils (%) (Auto) 66, Lymphocytes (%) (Auto) 23, Monocytes (%) (Auto) 7, Eosinophils (%) (Auto) 3, Basophils (%) (Auto) 1, Neutrophils # (Auto) 6.7, Lymphocytes # (Auto) 2.3, Monocytes # (Auto) 0.7, Eosinophils # (Auto) 0.4H, Basophils # (Auto) 0.1, Immature Granulocyte # (Auto) 0.1, Sodium Level 139, Potassium Level 4.0, Chloride Level 106, Carbon Dioxide Level 22, Anion Gap 11, Blood Urea Nitrogen 31H, Creatinine 0.98, Estimat Glomerular Filtration Rate 78, BUN/Creatinine Ratio 32, Glucose Level 104, Calcium Level 8.7, Corrected Calcium 9.3, Total Bilirubin 0.3, Aspartate Amino Transf (AST/SGOT) 18, Alanine Aminotransferase (ALT/SGPT) 32, Alkaline Phosphatase 71, Total Protein 6.2L, Albumin 3.3 A/P: Assessment: TIA, full recovery. - Had a transient episode of facial droop and weakness on the left side. Resolved. - Continue on aspirin and Plavix - Carotid u/s of 05-24-: Very dense irregular atherosclerotic plaquing with findings suggesting hemodynamic stenosis of the internal carotid arteries bilaterally. Stenosis is estimated approximately 70% Sinus node dysfunction, sinus bradycardia, not on any beta-blockers or calcium channel blockers - asymptomatic Advanced dementia. Dr. Figueroa had a long discussion with the patient and his niece, requested conservative management. Congestive heart failure, chronic compensated left ventricular systolic dys function with ejection fraction around 30% - Probably ischemic cardiomyopathy, compensated at this point. - Patient cannot tolerate beta-rosamaria due to sinus node dysfunction and bradycardia - Discussed the management plan with the patient and his niece, requested conservative management, patient has advanced dementia - Not a candidate for ICD per Dr. Figueroa Hypertension - controlled Hyperlipidemia Advanced dementia. Confusion. Patient requested to be DNR Plan: Records reviewed per Dr. Figueroa Continue current medication regimen other than change IV Lasix to oral Monitor lab oil well services superintendent working with family for possible placement Advise out f/u with EZ Johns May 26, 2022 11:05
[2022-05-26] MEDS ORDERED: FUROSEMIDE 20 MG (LASIX) TAB PO NR (11:15)
[2022-05-26] MEDS: LORazepam 0.5 MG (ATIVAN) TABLET PO PRN (11:43)
--- NOTE | 2022-05-26 11:43 | Progress Note - Cardiology ---
Cardiology SOAP Progress Note Subjective: Gen weakness and malaise present No focal weakness No shortness of breath at rest No n/v/d No focal weakness No cp or palp or syncope Objective: I&O/Vital Signs 05/26/22 05/26/22 05/26/22 05/26/22 00:00 04:00 08:01 11:06 Temp 36.6 36.7 Pulse 56 53 80 80 Resp 12 16 20 20 B/P (MAP) 150/77 (101) 122/68 (86) 141/91 (108) 105/62 (76) Pulse Ox 93 92 96 92 O2 Delivery Room Air Room Air Room Air Room Air 05/26/22 00:00 Intake Total 925 ml Output Total 1900 ml Balance -975 ml Constitutional: well-developed, well-nourished Respiratory: No accessory muscle use, No respiratory distress; chest expansion is symmetric, chest is bilaterally symmetric Cardiovascular: regular rate-rhythm; No JVD; S1 and S2, systolic murmur Gastrointestional: No tender; soft, audible bowel sounds Extremities: no lower extremity edema bilateral Neurologic/Psychiatric: grossly intact (moves all extremities) Skin: normal color, warm/dry; No jaundice, No rash on exposed areas, No ulcerations on exposed areas Results/Procedures: Labs Laboratory Tests 05/26/22 04:08: White Blood Count 10.2, Red Blood Count 3.98L, Hemoglobin 12.7L, Hematocrit 38L, Mean Corpuscular Volume 96, Mean Corpuscular Hemoglobin 32, Mean Corpuscular Hemoglobin Concent 33, Red Cell Distribution Width 13.5, Platelet Count 130, Mean Platelet Volume 10.0, Immature Granulocyte % (Auto) 1, Neutrophils (%) (Auto) 66, Lymphocytes (%) (Auto) 23, Monocytes (%) (Auto) 7, Eosinophils (%) (Auto) 3, Basophils (%) (Auto) 1, Neutrophils # (Auto) 6.7, Lymphocytes # (Auto) 2.3, Monocytes # (Auto) 0.7, Eosinophils # (Auto) 0.4H, Basophils # (Auto) 0.1, Immature Granulocyte # (Auto) 0.1, Sodium Level 139, Potassium Level 4.0, Chloride Level 106, Carbon Dioxide Level 22, Anion Gap 11, Blood Urea Nitrogen 31H, Creatinine 0.98, Estimat Glomerular Filtration Rate 78, BUN/Creatinine Ratio 32, Glucose Level 104, Calcium Level 8.7, Corrected Calcium 9.3, Total Bilirubin 0.3, Aspartate Amino Transf (AST/SGOT) 18, Alanine Aminotransferase (ALT/SGPT) 32, Alkaline Phosphatase 71, Total Protein 6.2L, Albumin 3.3 Laboratory Tests 05/25/22 05:15 05/26/22 04:08 A/P: Assessment: TIA, full recovery. - Had a transient episode of facial droop and weakness on the left side. Resolved. - Continue on aspirin and Plavix - Carotid u/s of 05-24-22: Very dense irregular atherosclerotic plaquing with findings suggesting hemodynamic stenosis of the internal carotid arteries bilaterally. Stenosis is estimated approximately 70% Sinus node dysfunction, sinus bradycardia, not on any beta-blockers or calcium channel blockers - asymptomatic Advanced dementia. Dr. Figueroa had a long discussion with the patient and his niece, requested conservative management. Congestive heart failure, chronic compensated left ventricular systolic dysfunction with ejection fraction around 30% - Probably ischemic cardiomyopathy, compensated at this point. - Patient cannot tolerate beta-rosamaria due to sinus node dysfunction and bradycardia - Discussed the management plan with the patient and his niece, requested conservative management, patient has advanced dementia - Not a candidate for ICD per Dr. Figueroa Hypertension - controlled Hyperlipidemia Advanced dementia. Confusion. Patient requested to be DNR Plan: Dr Figueroa's records reviewed Continue current medication regimen other than change IV Lasix to oral Monitor lab ancillary services manager working with family for possible placement Advise out f/u with JORDON Monique MD FACP [facility] CCDS May 26, 2022 11:42
--- NOTE | 2022-05-26 17:02 | Progress Note - Hospitalist ---
Subjective HPI/CC On Admission Date Seen by Provider: May 26, 2022 Time Seen by Provider: 10:10 Subjective/Events-last exam He is doing well. He has no complaints. He denies pain. He has been eating and drinking without issue. He is upset that his daughter isn't answering his calls. Objective Exam Vital Signs Vital Signs Date Time Temp Pulse Resp B/P (MAP) Pulse Ox O2 Delivery O2 Flow Rate FiO2 05/26/22 15:21 36.6 60 19 143/67 (92) 95 Room Air 05/26/22 14:00 2.00 05/23/22 21:15 21 Capillary Refill : Less Than 3 Seconds General Appearance: No Apparent Distress, WD/WN Respiratory: Lungs Clear, No Respiratory Distress Cardiovascular: Regular Rate, Rhythm, No Murmur Gastrointestinal: Normal Bowel Sounds, Soft Extremity: Normal Inspection, No Pedal Edema Skin: Normal Color, Warm/Dry Results/Procedures Lab Laboratory Tests 05/26/22 04:08 Patient resulted labs reviewed. Assessment/Plan Assessment and Plan Assess & Plan/Chief Complaint TIA Carotid stenosis ASA and Plavix Lipitor Bradycardia Chronic HFrEF Cardiology following Planning for conservative medical management Dementia Debility PT/OT Insurance denied SNF Planning for [facility], Medicaid pending Remains medically stable for discharge DVT prophylaxis: Lovenox Diagnosis/Problems Diagnosis/Problems (1) TIA (transient ischemic attack) Status: Acute (2) HLD (hyperlipidemia) Status: Chronic (3) Bradycardia Status: Acute (4) Chronic HFrEF (heart failure with reduced ejection fraction) Status: Chronic (5) Debility Status: Chronic Clinical Quality Measures Admission Status Admission Dx TIA DVT/VTE Risk/Contraindication: Contraindications-Mechi: Other *list below* Other: lower leg pain suspected clot EVI KELLER MD May 26, 2022 17:02
[2022-05-26] MEDS: ENOXAPARIN 40 MG/0.4 ML (LOVENOX) SYR SC SCH (21:56)
[2022-05-27 00:07] VITALS: BP 115/58
[2022-05-27 03:55] VITALS: BP 128/63
[2022-05-27 08:00] VITALS: BP 154/78
[2022-05-27] MEDS: CLOPIDOGREL 75 MG (PLAVIX) TABLET PO SCH (09:53)
[2022-05-27] MEDS: SENNOSIDES 8.6 MG (SENOKOT) TAB PO SCH ×2 (09:53→21:11)
[2022-05-27] MEDS: LOSARTAN 50 MG (COZAAR) TAB PO SCH (09:53)
[2022-05-27] MEDS: DOCUSATE SODIUM 100 MG (COLACE) CAP PO SCH ×2 (09:53→21:11)
[2022-05-27] MEDS: FUROSEMIDE 20 MG (LASIX) TAB PO SCH (09:53)
[2022-05-27] MEDS: NICOTINE 21 MG (NICODERM) PATCH TD SCH (09:53)
[2022-05-27] MEDS: ASPIRIN 325 MG (5 GR) TABLET PO SCH (09:55)
--- NOTE | 2022-05-27 10:16 | Physical Therapy Daily Note ---
PT Daily Note-Current Subjective Pt supine in bed, agreeable to PT treatment. Denies pain at this time. Pain Section J - Health Conditions 1. Rarely or not at all 2. Occasionally 3. Frequently 4. Almost constantly 8. Unable to answer Pain Effect on Sleep: 1 Pain Interference with Therapy: 1 Pain Interference w/Day-to-Day: 1 Appearance Following session, pt up in chair with RN present at bedside. Chair alarm activated, phone, call light and tray table all within reach. Mental Status Patient Orientation: Person, Confused Transfers SCALE: Activities may be completed with or without assistive devices. 1-Axzmanlksb-vmzuypw completes the activity by him/herself with no assistance fr om a helper. 5-Set-up or Clean-up Assistance-helper sets up or cleans up; patient completes activity. [place] assists only prior to or following the activity. 4-Supervision or Touching Assistance-helper provides verbal cues and/or touching/steadying and/or contact guard assistance as patient completes activity. Assistance may be provided throughout the activity or intermittently. 3-Partial/Moderate Assistance-helper does LESS THAN HALF the effort. [place] lifts, holds or supports trunk or limbs, but provides less than half the effort. 2-Substantial/Maximal Assistance-helper does MORE THAN HALF the effort. [place] lifts or holds trunk or limbs and provides more than half the effort. 9-Ikpgxshfe-xgwbrg does ALL the effort. Patient does none of the effort to complete the activity. Or, the assistance of 2 or more helpers is required for the patient to complete the activity. If activity was not attempted, code reason: 7-Patient Refused. 9-Not Applicable-not attempted and the patient did not perform the activity before the current illness, exacerbation or injury. 10-Not Attempted due to Environmental Limitations-(lack of equipment, weather restraints, etc.). 88-Not Attempted due to Medical Conditions or Safety Concerns. Roll Left & Right (QC): 4 Sit to Lying (QC): 4 Lying to Sitting/Side of Bed(Q: 4 Gait Training Distance: 300' Walk 150 ft (QC): 4 Gait Assistive Device: FWW Exercises Seated Therapy Exercises: Sit to stand, Long arc quads Assessment Current Status: Good Progress Pt tolerated treatment well, able to ambulate 300' in hallway with SBA. No LOB noted, occasionally demonstrates impulsive behaviors. PT Skilled Nursing Goals Skilled Nursing Goals PT Skilled Nursing Goals Time Frame: May 31, 2022 Roll Left & Right (QC): 6 Sit to Lying (QC): 6 Lying-Sitting on Side/Bed(QC): 6 Sit to Stand (QC): 6 Chair/Hki-xe-Byopj Xfer(QC): 6 Walk 10 feet (QC): 6 Walk 50ft with 2 Turns (QC): 6 Walk 150 ft (QC): 6 PT Plan Problem List Problem List: Activity Tolerance, Functional Strength, Safety, Balance, Gait, Transfer, Bed Mobility, ROM Treatment/Plan Treatment Plan: Continue Plan of Care Treatment Plan: Education, Functional Activity Rashard, Functional Strength, Gait, Safety, Therapeutic Exercise, Transfers Treatment Duration: May 31, 2022 Frequency: 6 times per week Estimated Hrs Per Day: .25 hour per day Patient and/or Family Agrees t: Yes Time/GCodes Time In: 933 Time Out: 956 Total Billed Treatment Time: 23 Total Billed Treatment 1 visit GT (10') FA (13') TINY LESLIE PT May 27, 2022 10:16
[2022-05-27] MEDS: LORazepam 0.5 MG (ATIVAN) TABLET PO PRN (11:06)
[2022-05-27 11:33] VITALS: BP 128/60
--- NOTE | 2022-05-27 14:54 | Progress Note - Cardiology ---
Cardiology SOAP Progress Note Subjective: Gen malaise and weakness present No focal weakness No n/v/d No swelling No palp Objective: I&O/Vital Signs 05/27/22 05/27/22 05/27/22 05/27/22 03:55 08:00 10:03 10:31 Temp 36.9 36.1 Pulse 62 66 Resp 16 20 B/P (MAP) 128/63 (84) 154/78 (103) Pulse Ox 95 97 97 97 O2 Delivery Room Air Room Air Room Air Room Air O2 Flow Rate 0.00 0.00 05/27/22 11:33 Temp 36.4 Pulse 63 Resp 18 B/P (MAP) 128/60 (82) Pulse Ox 94 O2 Delivery Room Air 05/27/22 00:00 Intake Total 2140 ml Balance 2140 ml Constitutional: well-developed, well-nourished Respiratory: No accessory muscle use, No respiratory distress; chest expansion is symmetric, chest is bilaterally symmetric Cardiovascular: regular rate-rhythm; No JVD; S1 and S2, systolic murmur Gastrointestional: No tender; soft, audible bowel sounds Extremities: no lower extremity edema bilateral Neurologic/Psychiatric: grossly intact (moves all extremities) Skin: normal color, warm/dry; No jaundice, No rash on exposed areas, No ulcerations on exposed areas A/P: Assessment: TIA, full recovery. - Had a transient episode of facial droop and weakness on the left side. Resolved. - Continue on aspirin and Plavix - Carotid u/s of 05-24-22: Very dense irregular atherosclerotic plaquing with findings suggesting hemodynamic stenosis of the internal carotid arteries bilaterally. Stenosis is estimated approximately 70% Sinus node dysfunction, sinus bradycardia, not on any beta-blockers or calcium channel blockers - asymptomatic Advanced dementia. Dr. Figueroa had a long discussion with the patient and his niece, requested conservative management. Congestive heart failure, chronic compensated left ventricular systolic dysfunction with ejection fraction around 30% - Probably ischemic cardiomyopathy, compensated at this point. - Patient cannot tolerate beta-rosamaria due to sinus node dysfunction and bradycardia - Discussed the management plan with the patient and his niece, requested co nservative management, patient has advanced dementia - Not a candidate for ICD per Dr. Figueroa Hypertension - controlled Hyperlipidemia Advanced dementia. Confusion. Patient requested to be DNR Plan: Continue current medication regimen Monitor lab supervisor ship maintenance services working with family for possible placement Advise out f/u with JORDON Monique MD FACP [facility] CCDS May 27, 2022 14:54
[2022-05-27 16:01] VITALS: BP 126/58
--- NOTE | 2022-05-27 17:23 | Progress Note - Hospitalist ---
Subjective HPI/CC On Admission Date Seen by Provider: May 27, 2022 Time Seen by Provider: 10:50 Subjective/Events-last exam He is feeling well. He has no complaints. He denies pain. He is sitting in his chair. Objective Exam Vital Signs Vital Signs Date Time Temp Pulse Resp B/P (MAP) Pulse Ox O2 Delivery O2 Flow Rate FiO2 05/27/22 16:01 36.6 79 20 126/58 (80) 96 Room Air 05/27/22 10:31 0.00 05/26/22 22:43 21 Capillary Refill : Less Than 3 Seconds General Appearance: No Apparent Distress, Thin Respiratory: Lungs Clear, No Respiratory Distress Cardiovascular: No Murmur, Irregularly Irregular Gastrointestinal: Normal Bowel Sounds, Soft Neurologic/Psychiatric: Alert, Normal Mood/Affect Results/Procedures Lab Patient resulted labs reviewed. Assessment/Plan Assessment and Plan Assess & Plan/Chief Complaint TIA Carotid stenosis ASA and Plavix Lipitor Bradycardia Chronic HFrEF Cardiology following Planning for conservative medical management Dementia Debility PT/OT Insurance denied SNF Planning for [facility], Medicaid pending Remains medically stable for discharge DVT prophylaxis: Lovenox Diagnosis/Problems Diagnosis/Problems (1) TIA (transient ischemic attack) Status: Acute (2) HLD (hyperlipidemia) Status: Chronic (3) Bradycardia Status: Acute (4) Chronic HFrEF (heart failure with reduced ejection fraction) Status: Chronic (5) Debility Status: Chronic Clinical Quality Measures Admission Status Admission Dx TIA DVT/VTE Risk/Contraindication: Contraindications-Mechi: Other *list below* Other: lower leg pain suspected clot EVI KELLER MD May 27, 2022 17:22
[2022-05-27 20:06] VITALS: BP 125/69
[2022-05-27] MEDS: ENOXAPARIN 40 MG/0.4 ML (LOVENOX) SYR SC SCH (21:11)
[2022-05-28] VITALS: BP 145/65
[2022-05-28 03:56] VITALS: BP 119/66
[2022-05-28 08:21] VITALS: BP 124/75
[2022-05-28] MEDS: LOSARTAN 50 MG (COZAAR) TAB PO SCH (08:46)
[2022-05-28] MEDS: NICOTINE 21 MG (NICODERM) PATCH TD SCH (08:46)
[2022-05-28] MEDS: ASPIRIN 325 MG (5 GR) TABLET PO SCH (08:46)
[2022-05-28] MEDS: FUROSEMIDE 20 MG (LASIX) TAB PO SCH (08:46)
[2022-05-28] MEDS: SENNOSIDES 8.6 MG (SENOKOT) TAB PO SCH ×2 (08:46→20:32)
[2022-05-28] MEDS: DOCUSATE SODIUM 100 MG (COLACE) CAP PO SCH ×2 (08:46→20:32)
[2022-05-28] MEDS: CLOPIDOGREL 75 MG (PLAVIX) TABLET PO SCH (08:46)
[2022-05-28] MEDS: LORazepam 0.5 MG (ATIVAN) TABLET PO PRN ×2 (08:47→16:11)
[2022-05-28 12:02] VITALS: BP 126/76
--- NOTE | 2022-05-28 13:42 | Progress Note - Cardiology ---
Cardiology SOAP Progress Note Subjective: no cp or palp or syncope no shortness of breath gen weakness no n/v/d Objective: I&O/Vital Signs 05/28/22 05/28/22 05/28/22 05/28/22 03:56 08:21 08:38 08:52 Temp 36.1 35.6 Pulse 57 60 Resp 18 20 B/P (MAP) 119/66 (83) 124/75 (91) Pulse Ox 95 94 98 O2 Delivery Room Air Room Air Room Air Room Air 05/28/22 12:02 Temp 36.5 Pulse 68 Resp 20 B/P (MAP) 126/76 (93) Pulse Ox 98 O2 Delivery Room Air 05/28/22 00:00 Intake Total 880 ml Balance 880 ml Constitutional: well-developed, well-nourished Respiratory: No accessory muscle use, No respiratory distress; chest expansion is symmetric, chest is bilaterally symmetric Cardiovascular: regular rate-rhythm; No JVD; S1 and S2, systolic murmur Gastrointestional: No tender; soft, audible bowel sounds Extremities: no lower extremity edema bilateral Neurologic/Psychiatric: grossly intact (moves all extremities) Skin: normal color, warm/dry; No jaundice, No rash on exposed areas, No ulcerations on exposed areas A/P: Assessment: TIA, full recovery. - Had a transient episode of facial droop and weakness on the left side. Resolved. - Continue on aspirin and Plavix - Carotid u/s of 05-24-22: Very dense irregular atherosclerotic plaquing with findings suggesting hemodynamic stenosis of the internal carotid arteries bilaterally. Stenosis is estimated approximately 70% Sinus node dysfunction, sinus bradycardia, not on any beta-blockers or calcium channel blockers - asymptomatic Advanced dementia. Dr. Figueroa had a long discussion with the patient and his niece, requested conservative management. Congestive heart failure, chronic compensated left ventricular systolic dysfunction with ejection fraction around 30% - Probably ischemic cardiomyopathy, compensated at this point. - Patient cannot tolerate beta-rosamaria due to sinus node dysfunction and br adycardia - Discussed the management plan with the patient and his niece, requested conservative management, patient has advanced dementia - Not a candidate for ICD per Dr. Figueroa Hypertension - controlled Hyperlipidemia Advanced dementia. Confusion. Patient requested to be DNR Plan: Continue current medication regimen Monitor lab office services coordinator working with family for possible placement Advise out f/u with JORDON Monique MD FACP [facility] CCDS May 28, 2022 13:42
--- NOTE | 2022-05-28 14:48 | Progress Note - Hospitalist ---
Subjective HPI/CC On Admission Date Seen by Provider: May 28, 2022 Time Seen by Provider: 11:00 Subjective/Events-last exam He is sitting in his chair looking out the window. He is feeling well. He denies pain. He has no complaints. Objective Exam Vital Signs Vital Signs Date Time Temp Pulse Resp B/P (MAP) Pulse Ox O2 Delivery O2 Flow Rate FiO2 05/28/22 12:02 36.5 68 20 126/76 (93) 98 Room Air 05/27/22 20:00 0.00 05/26/22 22:43 21 Capillary Refill : Less Than 3 Seconds General Appearance: No Apparent Distress, Thin Respiratory: Lungs Clear, No Respiratory Distress Cardiovascular: Regular Rate, Rhythm, No Murmur Gastrointestinal: Normal Bowel Sounds, Soft Neurologic/Psychiatric: Alert, Normal Mood/Affect Skin: Normal Color, Warm/Dry Results/Procedures Lab Patient resulted labs reviewed. Assessment/Plan Assessment and Plan Assess & Plan/Chief Complaint TIA Carotid stenosis ASA and Plavix Lipitor Bradycardia Chronic HFrEF Cardiology following Planning for conservative medical management Dementia Debility PT/OT Insurance denied SNF Planning for [facility], Medicaid pending Remains medically stable for discharge DVT prophylaxis: Lovenox Diagnosis/Problems Diagnosis/Problems (1) TIA (transient ischemic attack) Status: Acute (2) HLD (hyperlipidemia) Status: Chronic (3) Bradycardia Status: Acute (4) Chronic HFrEF (heart failure with reduced ejection fraction) Status: Chronic (5) Debility Status: Chronic Clinical Quality Measures Admission Status Admission Dx TIA DVT/VTE Risk/Contraindication: Contraindications-Mechi: Other *list below* Other: lower leg pain suspected clot EVI KELLER MD May 28, 2022 14:48
[2022-05-28 15:26] VITALS: BP 133/77
[2022-05-28 19:22] VITALS: BP 112/61
[2022-05-28] MEDS: ENOXAPARIN 40 MG/0.4 ML (LOVENOX) SYR SC SCH (20:33)
[2022-05-29] VITALS (7 sets, daily range): BP systolic 106–135; BP diastolic 55–67
[2022-05-29] MEDS: ASPIRIN 325 MG (5 GR) TABLET PO SCH (08:43)
[2022-05-29] MEDS: DOCUSATE SODIUM 100 MG (COLACE) CAP PO SCH (08:43)
[2022-05-29] MEDS: FUROSEMIDE 20 MG (LASIX) TAB PO SCH (08:43)
[2022-05-29] MEDS: LOSARTAN 50 MG (COZAAR) TAB PO SCH (08:43)
[2022-05-29] MEDS: CLOPIDOGREL 75 MG (PLAVIX) TABLET PO SCH (08:44)
[2022-05-29] MEDS: SENNOSIDES 8.6 MG (SENOKOT) TAB PO SCH (08:44)
[2022-05-29] MEDS: NICOTINE 21 MG (NICODERM) PATCH TD SCH (08:44)
--- NOTE | 2022-05-29 09:06 | Cardiology Progress Note ---
Subjective Date Seen by Provider: May 29, 2022 Time Seen by Provider: 08:10 Subjective/Events-last exam Patient is sitting in chair, no new complaints. Denies any chest pain or dy spnea. Objective-Cardiology Exam Last Set of Vital Signs Vital Signs 05/26/22 05/27/22 05/29/22 22:43 20:00 08:37 Temp 35.8 Pulse 59 Resp 18 B/P (MAP) 133/65 (87) Pulse Ox 94 O2 Delivery Room Air O2 Flow Rate 0.00 FiO2 21 I&O Intake and Output0 05/29/22 00:00 Intake Total 1770 ml Output Total 540 ml Balance 1230 ml Intake Oral 1770 ml Stool Total 540 ml # Voids 10 General: Alert, Cooperative, No Acute Distress HEENT: Atraumatic, EOMI Neck: Supple, No JVD Lungs: Clear to Auscultation, Normal Air Movement Heart: Normal S1, Normal S2 Abdomen: Normal Bowel Sounds, Soft, No Tenderness Extremities: No Clubbing, No Cyanosis, No Edema Skin: No Rashes, No Breakdown, No Significant Lesion Neuro: Normal Speech, Normal Tone Psych/Mental Status: Mental Status NL (mild confusion at baseline), Mood NL A/P-Cardiology Admission Diagnosis TIA Sinus node dysfunction Congestive heart failure, chronic compensated left ventricular systolic dysfunction, ischemic cardiomyopathy Coronary artery disease Assessment/Plan TIA, full recovery. Had a transient episode of facial droop and weakness on the left side. Resolved. Work-up has been negative. Continue on aspirin and Plavix Sinus node dysfunction, sinus bradycardia, not on any beta-blockers or calcium channel blockers. Blood pressure is stable, exercise ability is limited Patient is asymptomatic and has advanced dementia. Patient and family agreed on conservative management Heart rate is better, patient is working with physical therapy and feeling better. Congestive heart failure, chronic compensated left ventricular systolic dysfunction with ejection fraction around 30% Probably ischemic cardiomyopathy, compensated at this point. Patient cannot tolerate beta-rosamaria due to sinus node dysfunction and bradycardia Conservative management is recommended due to comorbid condition and dementia Not a candidate for ICD Hypertension, monitor blood pressure Hyperlipidemia, monitor lipids Advanced dementia. Confusion. Patient requested to be DNR Supervisory-Addendum Brief Supervisory Addendum Participated in pt care: history, MDM, physical Personally performed: exam, history, MDM Care discussed with: LINA Results interpretation: Verified all documentation Notes: Patient was seen and evaluated with Kaleigh, examination performed, management plan was discussed, agree with the current scribed note, I made few changes to the note using Italic font Patient was seen during therapy session, doing well Feeling better Denied any chest pain Conservative management is recommended Okay for discharge from cardiology standpoint and follow-up as an outpatient KALEIGH PAIZ May 29, 2022 09:06 OSCAR CHRISTIANSON MD May 29, 2022 09:35
--- NOTE | 2022-05-29 09:17 | Physical Therapy Daily Note ---
PT Daily Note-Current Subjective Patient agrees to PT. Pain Section J - Health Conditions 1. Rarely or not at all 2. Occasionally 3. Frequently 4. Almost constantly 8. Unable to answer Pain Effect on Sleep: 1 Pain Interference with Therapy: 1 Pain Interference w/Day-to-Day: 1 Mental Status Patient Orientation: Person, Time, Situation Transfers SCALE: Activities may be completed with or without assistive devices. 2-Vxvyedoexc-yykabhg completes the activity by him/herself with no assistance from a helper. 5-Set-up or Clean-up Assistance-helper sets up or cleans up; patient completes activity. [place] assists only prior to or following the activity. 4-Supervision or Touching Assistance-helper provides verbal cues and/or touching/steadying and/or contact guard assistance as patient completes activity. Assistance may be provided throughout the activity or intermittently. 3-Partial/Moderate Assistance-helper does LESS THAN HALF the effort. [place] lifts, holds or supports trunk or limbs, but provides less than half the effort. 2-Substantial/Maximal Assistance-helper does MORE THAN HALF the effort. [place] lifts or holds trunk or limbs and provides more than half the effort. 5-Fhvgousbo-fkcgxm does ALL the effort. Patient does none of the effort to complete the activity. Or, the assistance of 2 or more helpers is required for the patient to complete the activity. If activity was not attempted, code reason: 7-Patient Refused. 9-Not Applicable-not attempted and the patient did not perform the activity before the current illness, exacerbation or injury. 10-Not Attempted due to Environmental Limitations-(lack of equipment, weather restraints, etc.). 88-Not Attempted due to Medical Conditions or Safety Concerns. Sit to Stand (QC): 4 Gait Training Distance: 400' Walk 10 feet (QC): 4 Walk 50 ft with 2 Turns(QC): 4 Walk 150 ft (QC): 4 Gait Assistive Device: FWW slight trunk flexed posture with right LE IR from old injury/safe and functional gait sequence Assessment Patient remains up in recliner with chair alarm activated. PT to continue to address functional mobility. Plan dismissal to [place] this week per report. PT Retirement Goals Coal Crusher Operator Goals PT Coal Crusher Operator Goals Time Frame: May 31, 2022 Roll Left & Right (QC): 6 Sit to Lying (QC): 6 Lying-Sitting on Side/Bed(QC): 6 Sit to Stand (QC): 6 Chair/Tlm-zw-Omujc Xfer(QC): 6 Walk 10 feet (QC): 6 Walk 50ft with 2 Turns (QC): 6 Walk 150 ft (QC): 6 PT Plan Treatment/Plan Treatment Plan: Continue Plan of Care Treatment Plan: Education, Functional Activity Rashard, Functional Strength, Gait, Safety, Therapeutic Exercise, Transfers Treatment Duration: May 31, 2022 Frequency: 6 times per week Estimated Hrs Per Day: .25 hour per day Patient and/or Family Agrees t: Yes Time/GCodes Time In: 853 Time Out: 807 Total Billed Treatment Time: 14 Total Billed Treatment 1 visit FA 14 min HEIKE OCASIO PT May 29, 2022 09:17
--- NOTE | 2022-05-29 09:21 | Occupational Ther Daily Note ---
OT Current Status-Daily Note Subjective Pt alert, sitting in recliner. Pt agrees to therapy. No c/o pain. Pt wants to get out of the hospital. Mental Status/Objective Patient Orientation: Person, Place, Time, Situation ADL-Treatment Therapy Code Descriptions/Definitions Functional [place] Measure: 0=Not Assessed/NA 4=Minimal Assistance 1=Total Assistance 5=Supervision or Setup 2=Maximal Assistance 6=Modified [place] 3=Moderate Assistance 7=Complete IndependenceSCALE: Activities may be completed with or without assistive devices. 5-Xyfplkrijr-vswbkln completes the activity by him/herself with no assistance from a helper. 5-Set-up or Clean-up Assistance-helper sets up or cleans up; patient completes activity. [place] assists only prior to or following the activity. 4-Supervision or Touching Assistance-helper provides verbal cues and/or touching/steadying and/or contact guard assistance as patient completes activity. Assistance may be provided throughout the activity or intermittently. 3-Partial/Moderate Assistance-helper does LESS THAN HALF the effort. [place] li fts, holds or supports trunk or limbs, but provides less than half the effort. 2-Substantial/Maximal Assistance-helper does MORE THAN HALF the effort. [place] lifts or holds trunk or limbs and provides more than half the effort. 9-Suyosdxlc-ybukhb does ALL the effort. Patient does none of the effort to complete the activity. Or, the assistance of 2 or more helpers is required for the patient to complete the activity. If activity was not attempted, code reason: 7-Patient Refused. 9-Not Applicable-not attempted and the patient did not perform the activity before the current illness, exacerbation or injury. 10-Not Attempted due to Environmental Limitations-(lack of equipment, weather restraints, etc.). 88-Not Attempted due to Medical Conditions or Safety Concerns. Eating (QC): 6 Other Treatment Per nrsg, pt requires set up for dressing and SBA for toileting. Pt able to ambulate through hallways using FWW with supervision, no LOB. Pt very adamant that he wants to leave the hospital [facility]. After session, pt sitting in recliner drinking coffee. Safety measures in place. All needs met. OT Aviation Technician Aircraft Goals Aviation Technician Aircraft Goals Time Frame: Jun 02, 2022 Eating (QC): 6 Oral Hygiene (QC): 5 Toileting Hygiene (QC): 4 Shower/Bathe Self (QC): 4 Upper Body Dressing (QC): 5 Lower Body Dressing (QC): 4 On/Off Footwear (QC): 6 Additional Goals: 1-Demonstrate ADL Tasks, 2-Verbalize Understanding, 3- ImproveStrength/[place] 1=Demonstrate adherence to instructed precautions during ADL tasks. 2=Patient will verbalize/demonstrate understanding of assistive devices/modifications for ADL. 3=Patient will improve strength/tolerance for activity to enable patient to perform ADL's. OT Education/Plan Problem List/Assessment Assessment: Decreased Activ Tolerance, Decreased Safety Aware Discharge Recommendations Plan/Recommendations: Continue POC Treatment Plan/Plan of Care Patient would benefit from OT for education, treatment and training to promote independence in ADL's, mobility, safety and/or upper extremity function for ADL's. Plan of Care: ADL Retraining, Caregiver Training, Functional Mobility, UE Funct Exercise/Act, UE Neuromus Re-Ed/Coord Treatment Duration: Jun 02, 2022 Frequency: 3 times per week (3-5 x/week) Estimated Hrs Per Day: .25 hour per day Agreement: Yes Rehab Potential: Poor Time/GCodes Start Time: 08:50 Stop Time: 09:00 Total Time Billed (hr/min): 10 Billed Treatment Time 1 visit-FA 1 (10 min) GABRIELLA CANTRELL May 29, 2022 09:21
[2022-05-29] MEDS: LORazepam 0.5 MG (ATIVAN) TABLET PO PRN ×2 (09:57→13:53)
[2022-05-29] MEDS ORDERED: LOSA50TA63 PO ×2 (10:38→12:15)
--- NOTE | 2022-05-29 12:14 | Discharge Inst-Simple/Standard ---
Discharge Inst-Standard Discharge Medications New, Converted or Re-Newed RX: Transmitted to Pharmacy Patient Instructions/Follow Up Plan of Care/Instructions/FU: Please continue to take your medications as written. Please follow up with your primary care doctor to follow up this hospital stay. Activity as Tolerated: Yes Discharge Diet: No Restrictions Return to The Hospital For: Chest pain, shortness of breath, fever, weakness, if you feel you are getting worse. RUDDY MARTIN MD May 29, 2022 12:14
--- NOTE | 2022-05-29 13:06 | Discharge Summary ---
Diagnosis/Chief Complaint Date of Admission May 23, 2022 at 20:31 Date of Discharge Discharge Date: May 29, 2022 Primary Care Discharge Diagnosis (1) TIA (transient ischemic attack) Status: Acute (2) HLD (hyperlipidemia) Status: Chronic (3) Bradycardia Status: Acute (4) Chronic HFrEF (heart failure with reduced ejection fraction) Status: Chronic (5) Debility Status: Chronic Discharge Summary Discharge Physical Exam Allergies: Coded Allergies: No Known Drug Allergies (Unverified , 05/23/22) Vitals & I&Os Vital Signs Date Time Temp Pulse Resp B/P (MAP) Pulse Ox O2 Delivery O2 Flow Rate FiO2 05/29/22 12:54 36.6 78 19 135/66 (89) 97 Room Air 05/27/22 20:00 0.00 05/26/22 22:43 21 General Appearance: No Apparent Distress, WD/WN Cardiovascular: Regular Rate, Rhythm, No Murmur Gastrointestinal: Normal Bowel Sounds, Soft Neurologic/Psychiatric: Alert, Oriented x3 Hospital Course Patient was admitted to the hospital secondary to a TIA. He was seen by physical therapy and Occupational Therapy and did well and returned to his baseline. Unfortunately he was unable to return home due to his dementia and family elected to pursue half-way placement. He was discharged to [facility] and rehab in stable and improved condition. Labs (last 24 hrs) Patient resulted labs reviewed. Discussion & Recommendations Discharge Planning: >30 minutes discharge planning Discharge Home Medications: Active Scripts Active Losartan Potassium 50 Mg Tablet 50 Mg PO DAILY Reported Aspirin EC (Aspirin) 81 Mg Tablet.dr 81 Mg PO DAILY Atorvastatin Calcium 40 Mg Tablet 40 Mg PO HS Omeprazole 20 Mg Capsule.dr 20 Mg PO HS Instructions to patient/family Please see electronic discharge instructions given to patient. Clinical Quality Measures DVT/VTE Risk/Contraindication: Contraindications-Mechi: Other *list below* Other: lower leg pain suspected clot RUDDY MARTIN MD May 29, 2022 13:06
[2022-05-29] MEDS: diphenhydrAMINE 25 MG TAB (BENADRYL) PO PRN (13:53)
== END 2022-05-29 20:05 ==
LOC: ER 17:31 → UNDOADMOB 20:31 → CSD 20:31 → INTOOBSV 20:31 → CSD 05-24 13:32 → 4TH 05-25 17:35 → CSD 05-25 17:35 → 4TH 05-26 13:44 → CSD 05-26 13:44 → UNDODISOB 05-29 20:05
PROVIDERS: ADMIT Internal Medicine; ATTEND Internal Medicine
DX: G45.9 Transient cerebral ischemic attack, unspecified (principal); E78.5 Hyperlipidemia, unspecified; R53.81 Other malaise; I50.22 Chronic systolic (congestive) heart failure; E87.6 Hypokalemia; K21.9 Gastro-esophageal reflux disease without esophagitis; F03.90 Unspecified dementia, unspecified severity, without behavioral disturbance, psychotic disturbance, mood disturbance, and anxiety; Z79.82 Long term (current) use of aspirin; Z79.899 Other long term (current) drug therapy
CPT/HCPCS: 70450; 70551; 71045; 80053 ×4; 80061; 81000; 84484; 85025 ×4; 85379; 85610; 85730; 93005; 93041; 93880; 93970; 94664; 94760 ×3; 96366; 96372 ×5; 96375 ×2; 96376; 97110 ×2; 97116; 97162; 97166; 97530 ×5; 99284; C8929; G0378 ×2; 36415; 93306

== ENCOUNTER → 2022-06-05 | Outpatient (CLI) | payer MEDICARE ==
[~2022-06-05] MED LIST: ASPI-1238 PO; ATOR40TA70 PO; LOSA50TA63 PO; OMEP20CA18 PO
[2022-06-05 21:13] LABS: BILIRUBIN,URINE NEGATIVE (NEGATIVE); CLARITY,URINE CLEAR; COLOR,URINE YELLOW; GLUCOSE, URINE (UA) NEGATIVE (NEGATIVE); KETONES,URINE NEGATIVE (NEGATIVE); LEUKOCYTE ESTERASE ,URINE NEGATIVE (NEGATIVE); NITRITE,URINE NEGATIVE (NEGATIVE); PROTEIN,URINE NEGATIVE (NEGATIVE)
[2022-06-05 21:29] LABS: BACTERIA,URINE TRACE /HPF; CALCIUM OXALATE CRYSTALS,UR LARGE /LPF; SQUAMOUS EPITHELIAL CELL,UR RARE /HPF
== END ==
LOC: LAB 21:03
PROVIDERS: ATTEND Nurse Practitioner Family
DX: R44.3 Hallucinations, unspecified (principal); R41.82 Altered mental status, unspecified; M54.9 Dorsalgia, unspecified
CPT/HCPCS: 81000

== ENCOUNTER 2023-04-11 07:21 | Day surgery (SDC) | payer MEDICARE, MEDICAID ==
[~2023-04-11] VITALS: Ht 167 cm; Wt 60.4 kg
[2023-04-11] VITALS (11 sets, daily range): BP systolic 114–170; BP diastolic 67–87
[2023-04-11] MEDS ORDERED: LIDOCAINE 1% INJ 20 ML VIAL ONE ×2 (07:29→11:24)
[2023-04-11] MEDS ORDERED: NS IV 1000 ML 1,000 ML ONE (07:30)
[2023-04-11] MEDS ORDERED: HEParin (CATH LAB) 2,000 ML IV ONE (07:30)
[2023-04-11] MEDS ORDERED: NS IV 1000 ML 1,000 ML IV ONE (07:45)
--- NOTE | 2023-04-11 08:19 | Diagnostic Imaging Report ---
INDICATION: Preoperative evaluation prior to peripheral angiography and stenting Single AP view of chest is obtained with comparison made to the study of 05/23/2022. Overall heart size and pulmonary vascularity are within normal limits. There is mild air trapping. Prominent interstitial markings are present with mild increase in mixed interstitial and alveolar density in the left lung base. IMPRESSION: Increasing left basilar pulmonary density may represent pneumonitis. Dislocation can be associated with aspiration. Dictated by: Dictated on workstation # [id number]
[2023-04-11 09:37] LABS: HEMATOCRIT 39 % (40-54); HEMOGLOBIN 12.7 g/dL (13.3-17.7); MEAN CORPUSCULAR HEMOGLOBIN 31 pg (25-34); MEAN CORPUSCULAR HGB CONC 33 g/dL (32-36); MEAN CORPUSCULAR VOLUME 95 fL (80-99); MEAN PLATELET VOLUME 9.3 fL (9.0-12.2); PLATELET COUNT 197 10^3/uL (130-400); WHITE BLOOD COUNT 9.3 10^3/uL (4.3-11.0)
[2023-04-11 09:47] LABS: ALBUMIN 3.8 GM/DL (3.2-4.5); PROTHROMBIN TIME PATIENT 13.7 SEC (12.2-14.7)
[2023-04-11 09:48] LABS: CALCIUM 9.7 MG/DL (8.5-10.1)
[2023-04-11 09:49] LABS: TOTAL PROTEIN 8.1 GM/DL (6.4-8.2)
[2023-04-11 09:53] LABS: CREATININE SERUM 0.85 MG/DL (0.60-1.30)
[2023-04-11] MEDS ORDERED: ACET325C7 PO (09:56)
[2023-04-11] MEDS ORDERED: CITA10TA12 PO (09:56)
[2023-04-11] MEDS ORDERED: NICO-587 TD (09:56)
[2023-04-11] MEDS ORDERED: POTA10CA84 PO (09:56)
[2023-04-11] MEDS ORDERED: FURO20TA4 PO (09:56)
[2023-04-11] MEDS ORDERED: CLOP-31 PO (09:56)
[2023-04-11] MEDS ORDERED: proPOfol 200 MG/20 ML (DIPRIVAN) VIAL IV ONE (10:25)
[2023-04-11] MEDS ORDERED: PROPOFOL INJECTION 50 ML IV ONE (10:49)
[2023-04-11] MEDS ORDERED: KETAMINE 100 MG/ML 5 ML VIAL ONE (11:11)
--- NOTE | 2023-04-11 11:42 | Cardiac Procedure Note-CS/ASA ---
Pre-Procedure Note Pre-Op Procedure Note Date of Available H&P: Apr 05, 2023 Date H&P Reviewed: Apr 11, 2023 Time H&P Reviewed: 10:00 History & Physical: H&P Reviewed, Patient Examed, No changes noted Pre-Operative Diagnosis: PAD Moderate Sedation PreProcedure Time 10:00 ASA Score 3 Airway Lungs Heart ASA score ASA 1: a normal healthy patient ASA 2: a patient with a mild systemic disease (mid diabetes, controlled hypertension, obesity ASA 3: a patient with a severe systemic disease that limits activity (angina, COPD, prior Myocardial infarction) ASA 4: a patient with an incapacitating disease that is a constant threat to life (CHF, renal failure) ASA 5: a moribund patient not expected to survive 24 hrs. (ruptured aneurysm) ASA 6: a declared brain- patient whose organs are being harvested. For emergent operations, add the letter E after the classification Mallampati Classification Grade 3 Sedation Plan Analgesia, Amnesia, Plan communicated to team members, Discussed options with patient/fam, Discussed risks with patient/fam The patient is an appropriate candidate to undergo the planned procedure, sedation, and anesthesia. The patient immediately re-assessed prior to indication. OSCAR CHRISTIANSON MD Apr 11, 2023 11:42
[2023-04-11] MEDS ORDERED: PNT400TCR PO (11:44)
[2023-04-11] MEDS ORDERED: PATIENT MAY USE OWN MEDS, ALL PO SCH (11:45)
[2023-04-11] MEDS ORDERED: NS IV 1000 ML 1,000 ML IV SCH (11:45)
--- NOTE | 2023-04-11 11:45 | Discharge Inst-Post CATH ---
Discharge Inst-CATH/EP Problems Reviewed?: Yes Post Cardiac Cath/EP D/C Inst Follow Up/Plan Appointment with Dr. Figueroa's office in 2 to 4 weeks <b>CARDIAC CATH/EP PROCEDURE DISCHARGE INSTRUCTIONS</b> ACTIVITY * Go Home directly and rest. * Limit activity of the leg (or wrist if it was used) for 7 days including aer obics, swimming, jogging, bicycling, etc. * Restrict stair-climbing for 7 days if possible, if not, climb up with your non-cath leg, then bring together on the same step. * Avoid lifting, pushing, pulling or excessive movement of the affected extremi ty for 7 days. * Customary sexual activity may be resumed after 2 days-use caution not to use a position that strains or causes pain to the affected extremity. * No driving for 24 hours. * NO SMOKING. * Avoid straining for bowel movements for 7 days. * Gentle walking on level ground is allowed. * Returning to work will depend on the type of procedure and the results. Your doctor will discuss this with you. CALL YOUR DOCTOR FOR ANY OF THE FOLLOWING: *If bleeding from the puncture site occurs- Apply gentle pressure to site with clean cloth and call your doctor or EMS. * If a knot or lump forms under the skin, increases in size, or causes pain. * If bruising appears to be worsening or moving further down your leg instead of disappearing. * Temperature above 101 F. CARE OF YOUR GROIN INCISION; * Bruising or purple discoloration of the skin near the puncture site is common. * You may shower only, no bathtub bathing for 5 days. Be careful to avoid slipping as your leg may feel stiff. * If a closure device was used on your femoral artery, please see the attached guide regarding care of the device and your leg. * Leave dressing on FOR 24 hours. CARE OF YOUR WRIST INCISION; * Bruising or purple discoloration of the skin near the puncture site is common. * You may shower. * DO NOT submerge wrist. * Leave dressing on FOR 24 hours. OSCAR FIGUEROA MD Apr 11, 2023 11:45
--- NOTE | 2023-04-11 11:49 | Peripheral Report ---
Peripheral Report Physician (s)/Factory Machine Computer Operator (s) Physician OSCAR CHRISTIANSON MD Pre-Procedure Diagnosis Pre-Procedure Diagnosis: PAD Post-Procedure Note Procedure Start Date: Apr 11, 2023 Name of Procedure: Bilateral lower extremities runoff First order Additional imaging x3 Findings/Procedure Note PROCEDURE NOTE: Patient had severe peripheral arterial disease, abnormal CHONG and ultrasound, nonhealing wound on his right first and second toe. Scheduled for peripheral angiogram After explaining the procedure to the patient, all pros and cons were explained, all questions were answered. The patient signed the consent and then he was placed on the cardiac catheterization laboratory. The patient was placed on the cardiac catheterization laboratory. Groin was prepped SL fashion local anesthesia was used. Sheath placed in the right femoral artery, I was unable to place the sheath in the left femoral artery, runoff to the right leg was done then I performed DSA imaging to the trifurcation on the right then at the level of the foot. Then I advanced a rim catheter and placed it at the left common iliac artery and did runoff to the left leg then did DSA imaging to the trifurcation Sheath was removed with manual pressure FINDINGS: Right lower extremity: Severe diffuse disease in the right common iliac and common femoral artery. Occluded SFA diffusely diseased reconstructed by collateral at the popliteal artery Occluded anterior tibial artery Posterior tibial artery is patent with sluggish flow to the foot Left lower extremity: Severe diffuse disease in the left common iliac and common femoral artery with occluded femoral artery and occluded SFA with severe diffuse disease recon structed by collateral down at the level of the popliteal Anterior tibial, posterior tibial and peroneal artery has moderate disease with sluggish flow CONCLUSIONS: Severe diffuse peripheral arterial disease including bilateral occlusion of the common femoral and SFA, on the right side the right anterior tibial artery is occluded, there is very poor circulation and perfusion in the lower extremities bilaterally The disease is extremely diffuse and heavily calcified, not amendable to i ntervention. DISCUSSION AND RECOMMENDATIONS: Continue to maximize medical therapy, I will add pentoxifylline/Trental and evaluate tolerance and response Anesthesia Type: Conscious Sedation Estimated blood loss (mL): 10 ml Contrast Amount: 38 ml Total Radiation Dose: 110 mGy Post-Procedure Diagnosis Post-operative diagnosis: Nonhealing foot ulcer Peripheral arterial disease Hypertension Hyperlipidemia OSCAR CHRISTIANSON MD Apr 11, 2023 11:49
== END 2023-04-11 16:45 ==
LOC: CATH 07:21 → SDC 12:11 → CATH 16:45
PROVIDERS: ATTEND Internal Medicine Cardiovascular Disease
DX: I70.203 Unspecified atherosclerosis of native arteries of extremities, bilateral legs (principal); I77.1 Stricture of artery; I87.2 Venous insufficiency (chronic) (peripheral); L97.519 Non-pressure chronic ulcer of other part of right foot with unspecified severity; E78.2 Mixed hyperlipidemia; I11.0 Hypertensive heart disease with heart failure; I50.22 Chronic systolic (congestive) heart failure; I25.10 Atherosclerotic heart disease of native coronary artery without angina pectoris; I08.1 Rheumatic disorders of both mitral and tricuspid valves; R00.1 Bradycardia, unspecified; F03.90 Unspecified dementia, unspecified severity, without behavioral disturbance, psychotic disturbance, mood disturbance, and anxiety; Z79.01 Long term (current) use of anticoagulants; Z87.891 Personal history of nicotine dependence; Z79.82 Long term (current) use of aspirin; Z86.73 Personal history of transient ischemic attack (TIA), and cerebral infarction without residual deficits
CPT/HCPCS: 36245; 36248; 71045; 75716; 80053; 80061; 85027; 85610; 85730; 87081; C1769; C1887; C1894; 36415